=== PATIENT | male | born 1950 | race Caucasian/White ===

== ENCOUNTER 2019-06-03 11:08 | Emergency (ER) | payer MEDICARE, MEDICAID ==
--- NOTE | 2019-06-03 11:46 | EDM.PDOC ---
ED HPI GENERAL MEDICAL PROBLEM - General Chief Complaint: Respiratory Problem Stated Complaint: Anxiety with increased shortness of breath Time Seen by Provider: 06/03/19 11:25 Source of Information: Reports: Patient - History of Present Illness INITIAL COMMENTS - FREE TEXT/NARRATIVE: States today, shortly after getting out of the shower, sudden onset of shortness of breath. Denies chest pain at that time, sat down and took his medications including his as needed hydroxyzine. Stated by the time ambulance arrived was feeling better, and by the time arrival here to the [place] emergency department was feeling better yet compared to the initiation of transport. History of COPD as well as anxiety but stated this was something different from any past occurrences. Stated he has not had any anxiety issues since moving to [facility] but had more significance of that when residing in [place]. Denies any recent exposures, no travel, states he is in his typical good health. Was seen this week and is scheduled to go back tomorrow for recheck on his chronic lower extremity discomfort. Onset: Today, Sudden Duration: Minutes: Location: Reports: Head, Chest Severity: Moderate Improves with: Reports: Medication Worsens with: Reports: None Context: Reports: Other Associated Symptoms: Reports: Shortness of Breath. Denies: Confusion, Chest Pain, Cough, cough w sputum, Fever/Chills, Headaches, Loss of Appetite, Malaise , Nausea/Vomiting, Syncope - Related Data Allergies Allergy/AdvReac Type Severity Reaction Status Date / Time No Known Allergies Allergy Verified 06/03/19 11:54 Home Meds: Home Meds Fluticasone/Vilanterol [Breo Ellipta 100-25 MCG Inhalation Kit] 2 puff INH BID 06/03/19 [History] Gabapentin [Neurontin] 600 mg PO BID 06/03/19 [History] Ipratropium [Atrovent HFA] 2 puff INH BID 06/03/19 [History] QUEtiapine Fumarate [Quetiapine Fumarate] 800 mg PO BEDTIME 06/03/19 [History] busPIRone HCl [Buspirone HCl] 15 mg PO BID PRN 06/03/19 [History] hydrOXYzine pamoate [Hydroxyzine Pamoate] 50 mg PO BID PRN 06/03/19 [History] Past Medical History HEENT History: Reports: Impaired Vision Cardiovascular History: Reports: None Respiratory History: Reports: COPD, Sleep Apnea Gastrointestinal History: Reports: None Genitourinary History: Reports: None Musculoskeletal History: Reports: Arthritis (Right leg has been increasing bothersome with clinic visit yesterday started on ibuprofen which is seemingly helping. Previously had been using aspirin with improvement.) Psychiatric History: Reports: Anxiety Endocrine/Metabolic History: Reports: None Hematologic History: Reports: None Immunologic History: Reports: None Oncologic (Cancer) History: Reports: None Dermatologic History: Reports: None - Infectious Disease History Infectious Disease History: Reports: None - Past Surgical History HEENT Surgical History: Reports: None Cardiovascular Surgical History: Reports: None Respiratory Surgical History: Reports: None GI Surgical History: Reports: None Neurological Surgical History: Reports: Other (See Below) (Discectomy) Social & Family History - Family History Family Medical History: Noncontributory - Tobacco Use Smoking Status *Q: Current Every Day Smoker Tobacco Use Within Last Twelve Months: Cigarettes Used Tobacco, but Quit: Yes Month/Year Tobacco Last Used: Quit 9 years ago for 3-4 years cessation and then restarted. Now down to on Smoking Cessation Information Provided To Patient: Patient Refused (Self Quit the past 2 days, exhausted current supply and is not buying more.) - Caffeine Use Caffeine Use: Reports: None - Alcohol Use Alcohol Use History: No Alcohol Use in Last Twelve Months: No - Recreational Drug Use Recreational Drug Use: No ED ROS GENERAL - Review of Systems Review Of Systems: See Below Constitutional: Reports: No Symptoms. Denies: Fever, Chills, Fatigue HEENT: Reports: No Symptoms Respiratory: Reports: Shortness of Breath (Chronic COPD). Denies: Wheezing, Cough Cardiovascular: Reports: No Symptoms. Denies: Chest Pain, Dyspnea on Exertion, Lightheadedness, Orthopnea, Palpitations Endocrine: Reports: No Symptoms GI/Abdominal: Reports: No Symptoms, Constipation (Constipation which is treated with daily stool softener no recent events.) : Reports: No Symptoms Musculoskeletal: Reports: Leg Pain (Chronic right leg discomfort and scheduled to return tomorrow for reevaluation after implementation of anti-inflammatory. Previous use of aspirin with improvement.) Skin: Reports: No Symptoms. Denies: Cyanosis, Pallor Neurological: Reports: No Symptoms Psychiatric: Reports: Anxiety. Denies: Agitation, Depression Hematologic/Lymphatic: Reports: No Symptoms Immunologic: Reports: No Symptoms ED EXAM, GENERAL - Physical Exam Exam: See Below () Free Text/Narrative:: Alert, oriented, 3 in no distress. There is no cyanosis or pallor. HEENT is negative to discharge or deformity. PERRLA no icterus no injection EOM intact. No involvement to the auditory canals and tympanic membranes. [place] moist mucous membranes with no erythema. Dentition is in moderate discord. Neck soft supple no lymphadenopathy, no JVD, I do not appreciate carotid bruit. Thorax is clear no wheezes no crackles mildly diminished in the bases. Cardiac S1-S2 I do not appreciate murmur abdomen is soft bowel sounds are present no tenderness, no rebound tenderness, no megaly appreciated. No edema to lower extremities moves them about with no difficulty. rectal was deferred. In discussion during the examination, Alejo feels this was anxiety related. States when onset of breathing occurred after he had gotten out of the shower, he took his daily medications including his as needed anxiolytic. He stated and 20 minutes time for ambulance to arrive and assess he was feeling much better. He continued to improve in route to the facility with no concerns. States that he is well assured that it is not anything other than anxiety induced in accord with his COPD, denying chest pain, discomfort in any fashion. General Appearance: Alert, WD/WN, No Apparent Distress Ears: Normal External Exam, Normal Canal, Hearing Grossly Normal, Normal TMs EKG INTERPRETATION EKG Date: 06/03/19 Time: 11:41 Rhythm: NSR Rate (Beats/Min): 96 [place]: Normal P-Wave: Present QRS: Normal ST-T: Normal QT: Normal Comparison: NA - No Prior EKG Course - Vital Signs Last Recorded V/S: Last Vital Signs Temp 36.6 C 06/03/19 11:10 Pulse 92 06/03/19 12:45 Resp 18 06/03/19 12:45 BP 139/83 06/03/19 12:45 Pulse Ox 95 06/03/19 12:45 - Orders/Labs/Meds Orders: Active Orders 24 hr Category Date Time Status EKG Documentation Completion [RC] ASDIRECTED Care 06/03/19 11:35 Ordered Labs: Laboratory Tests 06/03/19 06/03/19 06/03/19 Range/Units 11:55 11:55 11:55 WBC 7.12 (5.00-10.00) 10^3/uL RBC 5.02 (4.50-6.00) 10^6/uL Hgb 14.5 (13.0-17.0) g/dL Hct 43.8 (40.0-52.0) % MCV 87.3 (82.0-92.0) fL MCH 28.9 (27.0-31.0) pg MCHC 33.1 (32.0-36.0) g/dL RDW 16.2 H (11.5-14.5) % Plt Count 243 (150-400) 10^3/uL MPV 9.6 (7.4-10.4) fL Immature Gran % (Auto) 0.6 (0.0-5.0) % Neut % (Auto) 70.4 H (50.0-70.0) % Lymph % (Auto) 19.5 L (20.0-40.0) % [place] % (Auto) 7.9 (2.0-8.0) % Eos % (Auto) 1.0 (1.0-3.0) % Baso % (Auto) 0.6 (0.0-1.0) % Immature Gran # (Auto) 0.04 (0.00-0.50) 10^3/uL Neut # (Auto) 5.02 (2.50-7.00) 10^3/uL Lymph # (Auto) 1.39 (1.00-4.00) 10^3/uL [place] # (Auto) 0.56 (0.10-0.80) 10^3/uL Eos # (Auto) 0.07 L (0.10-0.30) 10^3/uL Baso # (Auto) 0.04 (0.00-0.10) 10^3/uL D-Dimer, Quantitative 384 (<400) ng/mL Sodium 138 (136-145) mmol/L Potassium 4.0 (3.3-5.3) mmol/L Chloride 104 (98-115) mmol/L Carbon Dioxide 23.9 (21.0-32.0) mmol/L Anion Gap 14.1 (5-15) mmol/L BUN 16 (6-25) mg/dL Creatinine 0.81 (0.51-1.17) mg/dL Est Cr Clr Drug Dosing 86.07 mL/min Estimated GFR (MDRD) > 60 mL/min Glucose 123 H (75 - 99) mg/dL Calcium 8.9 (8.7-10.3) mg/dL Total Bilirubin 0.2 (0.2-1.0) mg/dL AST 15 (15-37) U/L ALT 22 (12-78) U/L Alkaline Phosphatase 88 (46-116) IU/L Total Protein 7.4 (6.4-8.2) g/dL Albumin 3.65 (3.00-4.80) g/dL - Radiology Interpretation Free Text/Narrative:: Chest x-ray returns with no evidence of hemopneumothorax, no cardiomegaly, no specific infiltrate with moderate stranding, questionable chronic attributed to his COPD. Mild widening appearance of the trachea, definitive hilar presentation within normal limits. Mild fissure findings on lateral view. Over read pending Official reading showing no examination findings of the chest of concern, "negative examination of the chest." - Re-Assessments/Exams Free Text/Narrative Re-Assessment/Exam: 06/03/19 12:31 Continues to feel stable/improved from onset time attempting to contact his daughter for transport home if released. Due to difficult blood draw still awaiting laboratory analysis. Free Text/Narrative Re-Assessment/Exam: 06/03/19 13:27 Feeling his normal baseline self with no concerns at this time, anxious to be discharged home. States he is scheduled for clinic appointment tomorrow with Nelida Rizo. Departure - Departure Time of Disposition: 13:30 Disposition: Home, Self-Care 01 Condition: Good Clinical Impression: Anxiety, COPD (chronic obstructive pulmonary disease), Mild shortness of breath , Hx of sleep apnea - Discharge Information *PRESCRIPTION DRUG MONITORING PROGRAM REVIEWED*: Not Applicable *COPY OF PRESCRIPTION DRUG MONITORING REPORT IN PATIENT RUPERTO: Not Applicable Referrals: Nelida Rizo NP [Primary Care Provider] - Forms: ED Department Discharge Additional Instructions: Continue your medications as previously instructed. Make sure to discuss this situation/recurrence today with your provider when you are there for your recheck. Home and rest today, avoiding any strenuous anxiety causing activity. High consideration for a sleep study should be given secondary of your history and this recent event. Contact your clinic as needed for rescheduling and recheck appointments. Call or return to the emergency department if emergent recurrence of nature that is not controlled with self administration of medications. Sepsis Event Note - Focused Exam Vital Signs: Vital Signs Temp Pulse Resp BP Pulse Ox 06/03/19 12:45 92 18 139/83 95 06/03/19 12:12 93 20 151/84 H 96 06/03/19 11:10 36.6 C 102 H 18 134/62 Date Exam was Performed: 06/03/19 Time Exam was Performed: 13:26 - Problem List & Annotations (1) Anxiety SNOMED Code(s): 51403398 Code(s): F41.9 - ANXIETY DISORDER, UNSPECIFIED Status: Acute Priority: Medium Current Visit: Yes (2) Mild shortness of breath SNOMED Code(s): 290174129 Code(s): R06.02 - SHORTNESS OF BREATH Status: Chronic Priority: High Current Visit: Yes (3) COPD (chronic obstructive pulmonary disease) SNOMED Code(s): 40585779 Code(s): J44.9 - CHRONIC OBSTRUCTIVE PULMONARY DISEASE, UNSPECIFIED Status : Chronic Priority: Medium Current Visit: Yes (4) Hx of sleep apnea SNOMED Code(s): 258879626 Code(s): Z86.69 - PERSONAL HISTORY OF DIS OF THE NERVOUS SYS AND SENSE ORGANS Status: Chronic Current Visit: Yes Annotation/Comment:: Has yet to undergo sleep study, acknowledges denied previous order of this testing modality - Problem List Review Problem List Initiated/Reviewed/Updated: Yes - My Orders Last 24 Hours: My Active Orders 06/03/19 11:35 EKG Documentation Completion [RC] ASDIRECTED - Assessment/Plan Last 24 Hours: My Active Orders 06/03/19 11:35 EKG Documentation Completion [RC] ASDIRECTED Plan: Continue your medications as previously instructed. Make sure to discuss this situation/recurrence today with your provider when you are there for your recheck. Home and rest today, avoiding any strenuous anxiety causing activity. High consideration for a sleep study should be given secondary of your history and this recent event. Contact your clinic as needed for rescheduling and recheck appointments. Call or return to the emergency department if emergent recurrence of nature that is not controlled with self administration of medications.
[2019-06-03 12:31] LABS: ANION GAP 14.1 mmol/L (5-15); CHLORIDE,CL 104 mmol/L (98-115); SODIUM,NA 138 mmol/L (136-145)
--- NOTE | 2019-06-03 12:52 | CR ---
[id number] RAD/RAD Chest PA And Lateral EXAM: RAD Chest PA And Lateral INDICATION: SHORTNESS OF BREATH. COMPARISON: None. DISCUSSION: Cardiomediastinal silhouette is normal in size and contour. No infiltrate, effusion, pneumothorax, or edema. IMPRESSION: Negative examination of the chest. Levi Looney MD 06/03/19 0161 Thank you for allowing us to participate in the care of your patient.
== END 2019-06-03 13:35 | disposition home or self-care (01) ==
LOC: KA.ED 11:08
DX: J44.9 Chronic obstructive pulmonary disease, unspecified (principal); F41.9 Anxiety disorder, unspecified; F17.210 Nicotine dependence, cigarettes, uncomplicated; Z79.899 Other long term (current) drug therapy
CPT/HCPCS: 36415; 71046; 80053; 85025; 85379; 93005; 99284; 99285-25

== ENCOUNTER 2019-09-25 21:50 | Observation (INO) | payer MEDICARE, MEDICAID ==
--- NOTE | 2019-09-25 22:23 | EDM.PDOC ---
ED HPI GENERAL MEDICAL PROBLEM - General Chief Complaint: Cardiovascular Problem Stated Complaint: PANIC ATTACK Time Seen by Provider: 09/25/19 22:10 Source of Information: Reports: Patient History Limitations: Reports: No Limitations - History of Present Illness INITIAL COMMENTS - FREE TEXT/NARRATIVE: 69 YO WM PRESENTS TO ER WITH EPISODE OF SHORTNESS OF BREATH AFTER WAKING FROM A [place] EARLIER TONIGHT. PT REPORTS HE WOKE FEELING PALPITATIONS AND MILD SHORTNESS OF BREATH. PT REPORTS USING HIS ALBUTEROL INHALER WITHOUT RELIEF PROMPTING EMS CALL. PT REPORTS SIMILAR SYMPTOMS IN THE PAST THAT HAVE BEEN RELATED TO PANIC ATTACKS. PT DENIES RECENT ILLNESS, NO FEVER/CHILLS, NO COUGH/CONGESTION, NO COVID EXPOSURES OR CONCERNS PER PATIENT. PT DENIES CHEST PAIN, LOWER EXTREMITY SWELLING, INCREASED WEIGHT GAIN. PT REPORTS HE THINKS HE NEEDS HOME O2- SAO2 94% ON RA AT TIME OF ARRIVAL. Onset: Today Onset Date: 09/25/19 Onset Time: 19:00 Duration: Hour(s): (4) Location: Reports: Other (RESPIRATORY-SHORTNESS OF BREATH) Severity: Moderate Improves with: Reports: Rest Worsens with: Reports: Movement Associated Symptoms: Reports: Malaise, Shortness of Breath, Weakness. Denies: Confusion, Chest Pain, Cough, cough w sputum, Diaphoresis, Fever/Chills, Nausea/Vomiting, Rash, Syncope - Related Data Allergies Allergy/AdvReac Type Severity Reaction Status Date / Time No Known Allergies Allergy Verified 09/25/19 22:07 Home Meds: Home Meds Fluticasone/Vilanterol [Breo Ellipta 100-25 MCG Inhalation Kit] 2 puff INH BID 06/03/19 [History] Gabapentin [Neurontin] 600 mg PO BID 06/03/19 [History] Ipratropium [Atrovent HFA] 2 puff INH BID 06/03/19 [History] QUEtiapine Fumarate [Quetiapine Fumarate] 800 mg PO BEDTIME 06/03/19 [History] busPIRone HCl [Buspirone HCl] 15 mg PO BID PRN 06/03/19 [History] hydrOXYzine pamoate [Hydroxyzine Pamoate] 50 mg PO BID PRN 06/03/19 [History] Past Medical History HEENT History: Reports: Impaired Vision Cardiovascular History: Reports: None Respiratory History: Reports: COPD, Sleep Apnea Gastrointestinal History: Reports: None Genitourinary History: Reports: None Musculoskeletal History: Reports: Arthritis (Right leg has been increasing bothersome with clinic visit yesterday started on ibuprofen which is seemingly helping. Previously had been using aspirin with improvement.) Neurological History: Reports: None Psychiatric History: Reports: Anxiety Endocrine/Metabolic History: Reports: None Hematologic History: Reports: None Immunologic History: Reports: None Oncologic (Cancer) History: Reports: None Dermatologic History: Reports: None - Infectious Disease History Infectious Disease History: Reports: None - Past Surgical History HEENT Surgical History: Reports: None Cardiovascular Surgical History: Reports: None Respiratory Surgical History: Reports: None GI Surgical History: Reports: None Neurological Surgical History: Reports: Other (See Below) (Discectomy) Social & Family History - Family History Family Medical History: Noncontributory - Caffeine Use Caffeine Use: Reports: None Other Caffeine Use: drinks soda 1 bottle 3 times a week ED ROS GENERAL - Review of Systems Review Of Systems: See Below Constitutional: Reports: No Symptoms HEENT: Reports: No Symptoms Respiratory: Reports: Shortness of Breath Cardiovascular: Reports: Dyspnea on Exertion Endocrine: Reports: No Symptoms GI/Abdominal: Reports: No Symptoms : Reports: No Symptoms Musculoskeletal: Reports: No Symptoms Skin: Reports: No Symptoms Neurological: Reports: No Symptoms Psychiatric: Reports: No Symptoms Hematologic/Lymphatic: Reports: No Symptoms Immunologic: Reports: No Symptoms ED EXAM, GENERAL - Physical Exam Exam: See Below Exam Limited By: No Limitations General Appearance: Alert, WD/WN, No Apparent Distress Eye Exam: Bilateral Eye: PERRL Head: Atraumatic, Normocephalic Neck: Normal Inspection, Supple, Non-Tender, Full Range of Motion Respiratory/Chest: No Respiratory Distress, Lungs Clear, No Accessory Muscle Use, Chest Non-Tender, Decreased Breath Sounds Cardiovascular: Normal Peripheral Pulses, Regular Rate, Rhythm, No Edema, No Gallop, No JVD, No Murmur, No Rub GI/Abdominal: Normal Bowel Sounds, Soft, Non-Tender, No Organomegaly, No Distention, No Abnormal Bruit, No Mass Back Exam: Normal Inspection, Full Range of Motion, NT Extremities: Normal Inspection, Normal Range of Motion, Non-Tender, Normal Capillary Refill, No Pedal Edema Neurological: Alert, Oriented, CN II-XII Intact, Normal Cognition, Normal Gait, Normal Reflexes, No Motor/Sensory Deficits Psychiatric: Normal Affect, Normal Mood Skin Exam: Warm, Dry, Intact, Normal Color, No Rash Lymphatic: No Adenopathy EKG INTERPRETATION EKG Date: 09/25/19 Time: 22:10 Rhythm: NSR Rate (Beats/Min): 112 [place]: Normal P-Wave: Present QRS: Normal ST-T: Normal QT: Normal Comparison: NA - No Prior EKG Course - Vital Signs Last Recorded V/S: Last Vital Signs Temp 36.3 C 09/25/19 21:55 Pulse 109 H 09/25/19 22:47 Resp 18 09/25/19 22:47 BP 110/71 09/25/19 22:47 Pulse Ox 95 09/25/19 22:47 - Orders/Labs/Meds Orders: Active Orders 24 hr Category Date Time Status EKG Documentation Completion [RC] ASDIRECTED Care 09/25/19 22:08 Active RT Aerosol Therapy [RC] ASDIRECTED Care 09/25/19 23:31 Ordered Chest 2V [CR] Stat Exams 09/25/19 22:07 Ordered CORONAVIRUS COVID-19 RAPID [MOLEC] Stat Lab 09/25/19 22:55 Received EKG 12 Lead [EK] Stat Ther 09/25/19 22:07 Ordered Labs: Laboratory Tests 09/25/19 09/25/19 09/25/19 Range/Units 22:55 22:55 22:55 WBC 12.12 H (5.00-10.00) 10^3/uL RBC 4.72 (4.50-6.00) 10^6/uL Hgb 13.7 (13.0-17.0) g/dL Hct 40.1 (40.0-52.0) % MCV 85.0 (82.0-92.0) fL MCH 29.0 (27.0-31.0) pg MCHC 34.2 (32.0-36.0) g/dL RDW 14.4 (11.5-14.5) % Plt Count 224 (150-400) 10^3/uL MPV 10.8 H (7.4-10.4) fL Immature Gran % (Auto) 0.2 (0.0-5.0) % Neut % (Auto) 81.3 H (50.0-70.0) % Lymph % (Auto) 10.1 L (20.0-40.0) % [place] % (Auto) 7.1 (2.0-8.0) % Eos % (Auto) 0.8 L (1.0-3.0) % Baso % (Auto) 0.5 (0.0-1.0) % Neut # (Auto) 9.85 H (2.50-7.00) 10^3/uL Lymph # (Auto) 1.23 (1.00-4.00) 10^3/uL [place] # (Auto) 0.86 H (0.10-0.80) 10^3/uL Eos # (Auto) 0.10 (0.10-0.30) 10^3/uL Baso # (Auto) 0.06 (0.00-0.10) 10^3/uL Immature Gran # (Auto) 0.02 (0.00-0.50) 10^3/uL Sodium 141 (136-145) mmol/L Potassium 2.9 L (3.3-5.3) mmol/L Chloride 103 (98-115) mmol/L Carbon Dioxide 24.4 (21.0-32.0) mmol/L Anion Gap 16.5 H (5-15) mmol/L BUN 12 (6-25) mg/dL Creatinine 0.87 (0.51-1.17) mg/dL Est Cr Clr Drug Dosing 81.44 mL/min Estimated GFR (MDRD) > 60 mL/min Glucose 139 H (75 - 99) mg/dL Calcium 8.4 L (8.7-10.3) mg/dL Total Bilirubin 0.5 (0.2-1.0) mg/dL AST 18 (15-37) U/L ALT 17 (12-78) U/L Alkaline Phosphatase 84 (46-116) IU/L Creatine Kinase 79 (26-276) U/L CK-MB (CK-2) 1.80 (0.00-4.30) ng/mL Troponin I 0.07 (0.00-0.070) ng/mL B-Natriuretic Peptide 14 (0-100) pg/mL Total Protein 7.0 (6.4-8.2) g/dL Albumin 3.60 (3.00-4.80) g/dL Meds: Medications Discontinued Medications Generic Name Dose Route Start Last Admin Trade Name Scot PRN Reason Stop Dose Admin Albuterol/Ipratropium 3 ml 09/25/19 23:31 Duoneb 3.0-0.5 Mg/3 Ml NEB 09/25/19 23:32 ONETIME ONE Sodium Chloride 1,000 mls @ 999 mls/hr 09/25/19 22:13 09/25/19 22:40 Normal Saline IV 09/25/19 23:13 999 mls/hr .BOLUS ONE Administration Lorazepam 1 mg 09/25/19 22:13 09/25/19 22:35 Ativan IVPUSH 09/25/19 22:14 1 mg ONETIME ONE Administration Methylprednisolone Sodium Succinate 125 mg 09/25/19 23:31 Solu-Medrol IVPUSH 09/25/19 23:32 ONETIME ONE Potassium Chloride 40 meq 09/25/19 23:37 Klor-Con M20 PO 09/25/19 23:38 ONETIME ONE - Radiology Interpretation Free Text/Narrative:: CXR-NAD Departure - Departure Time of Disposition: 23:53 Disposition: Refer to Observation Condition: Fair Clinical Impression: COPD with exacerbation Anxiety disorder Qualifiers: Anxiety disorder type: generalized anxiety disorder Qualified Code(s): F41.1 - Generalized anxiety disorder Referrals: Tatiana Farrell MD [Physician] - Forms: ED Department Discharge Sepsis Event Note (ED) - Evaluation Sepsis Screening Result: No Definite Risk - Focused Exam Vital Signs: Vital Signs Temp Pulse Resp BP Pulse Ox 09/25/19 22:47 109 H 18 110/71 95 09/25/19 22:15 113 H 15 110/70 95 09/25/19 21:55 36.3 C 120 H 17 140/62 94 L - My Orders Last 24 Hours: My Active Orders 09/25/19 22:07 Chest 2V [CR] Stat EKG 12 Lead [EK] Stat 09/25/19 22:08 EKG Documentation Completion [RC] ASDIRECTED 09/25/19 22:55 CORONAVIRUS COVID-19 RAPID [MOLEC] Stat 09/25/19 23:31 RT Aerosol Therapy [RC] ASDIRECTED - Assessment/Plan Last 24 Hours: My Active Orders 09/25/19 22:07 Chest 2V [CR] Stat EKG 12 Lead [EK] Stat 09/25/19 22:08 EKG Documentation Completion [RC] ASDIRECTED 09/25/19 22:55 CORONAVIRUS COVID-19 RAPID [MOLEC] Stat 09/25/19 23:31 RT Aerosol Therapy [RC] ASDIRECTED Assessment:: 1. COPD EXACERBATION 2. ANXIETY DISORDER Plan: 1. ADMIT TO MEDICINE- DR MARCO ESCOBAR ACCEPTING- COPD EXACERBATION 2. DUONEB Q4 AND PRN 3. SUPPLEMENTAL O2 AND CONSIDER HOME O2 4. SUPPORTIVE CARE
[2019-09-25] MEDS: LORazepam 2 MG/ML SDV IVPUSH ONE (22:35)
[2019-09-25] MEDS: Sodium Chloride 0.9% 1,000 ML IV ONE (22:40)
[2019-09-25 23:26] LABS: ANION GAP 16.5 mmol/L (5-15); CHLORIDE,CL 103 mmol/L (98-115); SODIUM,NA 141 mmol/L (136-145)
[2019-09-25] MEDS: methylPREDNISolone Sodium Succinate 125 MG/2 ML SDV IVPUSH ONE (23:40)
[2019-09-25] MEDS: Albuterol/Ipratropium 3.0-0.5 MG/3 ML Neb Soln NEB ONE (23:50)
[2019-09-25] MEDS ORDERED: Albuterol/Ipratropium 3.0-0.5 MG/3 ML Neb Soln NEB PRN (23:54)
[2019-09-26] MEDS: LORazepam 2 MG/ML SDV IV ONE
[2019-09-26] MEDS: Potassium Chloride 20 MEQ Tab.ER PO ONE
[2019-09-26] MEDS ORDERED: Non-Formulary Medication 1 Each (Hydroxyzine Pamoate [Hydroxyzine Pamoate] 50 MG) PO PRN (00:17)
[2019-09-26] MEDS: Ipratropium 0.02% 0.5 MG/2.5 ML Neb Soln NEB SCH (07:51)
[2019-09-26] MEDS: Sodium Chloride 0.9% 10 ML Syringe FLUSH PRN (07:52)
[2019-09-26] MEDS: Gabapentin 300 MG Cap PO SCH (08:00)
[2019-09-26] MEDS: Acetaminophen 325 MG Tab PO PRN (08:00)
[2019-09-26] MEDS: Formoterol/Mometasone 100-5 MCG 8.8 GM Inhaler IH SCH (08:01)
[2019-09-26 08:05] LABS: ANION GAP 12.8 mmol/L (5-15); CHLORIDE,CL 106 mmol/L (98-115); SODIUM,NA 141 mmol/L (136-145)
[2019-09-26] MEDS ORDERED: IPRATROPIUM INH SCH (09:00)
[2019-09-26] MEDS ORDERED: FLUTICASONE INH SCH (09:00)
[2019-09-26] MEDS ORDERED: VILANTEROL INH SCH (09:00)
[2019-09-26] MEDS: busPIRone 10 MG Tab PO PRN (09:54)
[2019-09-26] MEDS: Escitalopram 10 MG Tab PO SCH (11:21)
--- NOTE | 2019-09-26 11:28 | PCM.HP.2 ---
H&P History of Present Illness - General Date of Service: 09/26/19 Admit Problem/Dx: Admission Diagnosis/Problem Admission Diagnosis/Problem COPD, Moderate chronic obstructive pulmonary disease Source of Information: Patient, Old Records, Provider (Mauri Hwang PA-C (ED provider)), RN - History of Present Illness Initial Comments - Free Text/Narative: Mr. Blanc reports that over the past several weeks, he has had increasing difficulty with breathing. Endorses a long history of "bad lungs" from COPD and anxiety. Hasn't sought medical attention or follow-up care for >4mos. On the evening of 09/25/19, he felt his breathing was tight and he was wheezing so he used a home nebulizer treatment without much improvement, so called EMS for transfer to [facility]. He denies any known inciting factors, but endorses that his anxiety has played a role in his breathing as well. No recent exposures or other cardiopulmonary symptoms. In the ED, he was noted to be overall with a reassuring cardiopulmonary status, but with the following notable findings: - VS: T 36.3, P 120, O2 94% - Labs: WBC 12, K 2.9, troponin 0.07 - EKG: Sinus tachycardia, LAD, no acute ST segment changes - CXR: No acute findings. - COVID negative - Was started on oxygen, though no O2 sat <90% recorded - Medications given: NS 1L, DuoNeb x1, Methylprednisolone 125mg IV x1, lorazepam 1mg IV x1 This morning on rounds, the patient states that he is overall doing better. He feels his breathing problems are a result of a worsening of his COPD and anxiety. States that he has been taking his medications as a prescribed, including maintenance COPD inhalers (Breo, Atrovent) and anxiety medications (escitalopram, quetiapine, and buspirone), except for not having any hydroxyzine. Agreeable to psychology and psychiatry referrals. Desires discharge to home today and is willing to establish care locally and have close follow-up of his chronic conditions, including improvement in in his anxiety management. Denies any thoughts of self harm. Plans to go work on a job in [employer] in 2 weeks due to being bored and wishing for additional money. Chest Pain Score (Numeric/FACES): 7 - Related Data Allergies/Adverse Reactions: Allergies Allergy/AdvReac Type Severity Reaction Status Date / Time No Known Allergies Allergy Verified 09/26/19 07:20 Home Medications: Home Meds Fluticasone/Vilanterol [Breo Ellipta 100-25 MCG Inhalation Kit] 2 puff INH BID 06/03/19 [History] Gabapentin [Neurontin] 600 mg PO BID 06/03/19 [History] Ipratropium [Atrovent HFA] 2 puff INH BID 06/03/19 [History] QUEtiapine Fumarate [Quetiapine Fumarate] 800 mg PO BEDTIME 06/03/19 [History] Albuterol/Ipratropium [DuoNeb 3.0-0.5 MG/3 ML] 3 ml NEB Q4H PRN #30 neb 09/26/19 [Rx] Aspirin 325 mg PO DAILY 09/26/19 [History] Escitalopram [Lexapro] 20 mg PO DAILY 09/26/19 [History] Famotidine 40 mg PO DAILY #30 tablet 09/26/19 [Rx] busPIRone HCl [Buspirone HCl] 15 mg PO BID #0 09/26/19 [Rx] hydrOXYzine pamoate [Hydroxyzine Pamoate] 50 mg PO BID PRN #30 09/26/19 [Rx] predniSONE [Prednisone] 40 mg PO DAILY 4 Days #8 tablet 09/26/19 [Rx] Past Medical History HEENT History: Reports: Impaired Vision Cardiovascular History: Reports: Hypertension Respiratory History: Reports: COPD, Sleep Apnea Gastrointestinal History: Reports: None Genitourinary History: Reports: None Musculoskeletal History: Reports: Arthritis Neurological History: Reports: None Psychiatric History: Reports: Addiction, Anxiety, Depression, Other (See Below) Other Psychiatric History: benzodiapzepine dependence Endocrine/Metabolic History: Reports: Other (See Below) Other Endocrine/Metabolic History: Prediabetes Hematologic History: Reports: None Immunologic History: Reports: None Oncologic (Cancer) History: Reports: None Dermatologic History: Reports: None - Infectious Disease History Infectious Disease History: Reports: None - Past Surgical History HEENT Surgical History: Reports: None Cardiovascular Surgical History: Reports: None Respiratory Surgical History: Reports: None GI Surgical History: Reports: None Neurological Surgical History: Reports: Other (See Below) Social & Family History - Family History Cardiac: Reports: CAD, Hypertension - Tobacco Use Smoking Status *Q: Former Smoker Used Tobacco, but Quit: Yes Month/Year Tobacco Last Used: 02/2019 Second Hand Smoke Exposure: No - Caffeine Use Caffeine Use: Reports: None Other Caffeine Use: drinks soda 1 bottle 3 times a week - Recreational Drug Use Recreational Drug Use: No H&P Review of Systems - Review of Systems: Review Of Systems: See Below General: Reports: Weakness, Fatigue. Denies: Fever, Chills, Decreased Appetite HEENT: Reports: Visual Changes (chronic, states he needs cataract surgery). Denies: Headaches, Sore Throat Pulmonary: Denies: Shortness of Breath, Wheezing, Cough, Sputum, Hemoptysis Cardiovascular: Denies: Chest Pain, Palpitations, Edema, Syncope Gastrointestinal: Reports: Abdominal Pain (occasional epigastric and lower), Constipation (improved with PEG). Denies: Bloody Stool, Decreased Appetite, Nausea, Vomiting Genitourinary: Denies: Dysuria, Frequency, Hematuria Musculoskeletal: Reports: Leg Pain, Muscle Pain, Muscle Stiffness Skin: Denies: Rash, Erythema, Wound Psychiatric: Reports: Depression, Anxiety. Denies: Hallucinations, Suicidal Ideation Neurological: Reports: Weakness, Gait Disturbance. Denies: Headache, Numbness, Syncope Exam - Exam Exam: See Below - Vital Signs Vital Signs: Last Vital Signs Temp 35.9 C L 09/26/19 06:24 Pulse 93 09/26/19 06:24 Resp 20 09/26/19 06:24 BP 120/74 09/26/19 06:24 Pulse Ox 95 09/26/19 07:56 Weight: 99.79 kg - Exam Physical Exam Comments:: GENERAL: Well-appearing elderly white male lying in hospital bed in no acute distress. HEENT: Normocephalic, atraumatic. Conjunctiva clear. Nares patent without discharge. Mucous membranes moist, posterior pharynx unremarkable. NECK: Supple, no masses. CV: Regular rate and rhythm, no murmurs, rubs, or gallops. 2+ radial pulses. PULMONARY: Normal effort, faint end expiratory wheezes in the lower bases bilaterally, no rales or rhonchi. ABDOMEN: Positive bowel sounds, soft, nontender, very mild epigastric and mid lower abdominal pain, no guarding/rigidity/rebound. EXTREMITIES: Very dirty feet bilaterally with mud present. No edema, cyanosis, or clubbing. MUSCULOSKELETAL: Moves all extremities well. NEUROLOGICAL: No obvious deficits. DERMATOLOGIC: No rashes or suspicious lesions in exposed areas. PSYCHIATRIC: Alert, interactive, mildly flattened affect, at least mildly decreased insight and judgment about medical conditions and care, no obvious hallucinations/delusions, denies SI. - Patient Data Lab Results Last 24 hrs: Laboratory Results - last 24 hr 09/25/19 09/25/19 09/25/19 Range/Units 22:55 22:55 22:55 WBC 12.12 H (5.00-10.00) 10^3/uL RBC 4.72 (4.50-6.00) 10^6/uL Hgb 13.7 (13.0-17.0) g/dL Hct 40.1 (40.0-52.0) % MCV 85.0 (82.0-92.0) fL MCH 29.0 (27.0-31.0) pg MCHC 34.2 (32.0-36.0) g/dL RDW 14.4 (11.5-14.5) % Plt Count 224 (150-400) 10^3/uL MPV 10.8 H (7.4-10.4) fL Immature Gran % (Auto) 0.2 (0.0-5.0) % Neut % (Auto) 81.3 H (50.0-70.0) % Lymph % (Auto) 10.1 L (20.0-40.0) % Dillon % (Auto) 7.1 (2.0-8.0) % Eos % (Auto) 0.8 L (1.0-3.0) % Baso % (Auto) 0.5 (0.0-1.0) % Neut # (Auto) 9.85 H (2.50-7.00) 10^3/uL Lymph # (Auto) 1.23 (1.00-4.00) 10^3/uL Dillon # (Auto) 0.86 H (0.10-0.80) 10^3/uL Eos # (Auto) 0.10 (0.10-0.30) 10^3/uL Baso # (Auto) 0.06 (0.00-0.10) 10^3/uL Immature Gran # (Auto) 0.02 (0.00-0.50) 10^3/uL Sodium 141 (136-145) mmol/L Potassium 2.9 L (3.3-5.3) mmol/L Chloride 103 (98-115) mmol/L Carbon Dioxide 24.4 (21.0-32.0) mmol/L Anion Gap 16.5 H (5-15) mmol/L BUN 12 (6-25) mg/dL Creatinine 0.87 (0.51-1.17) mg/dL Est Cr Clr Drug Dosing 81.44 mL/min Estimated GFR (MDRD) > 60 mL/min Glucose 139 H (75 - 99) mg/dL Calcium 8.4 L (8.7-10.3) mg/dL Total Bilirubin 0.5 (0.2-1.0) mg/dL AST 18 (15-37) U/L ALT 17 (12-78) U/L Alkaline Phosphatase 84 (46-116) IU/L Creatine Kinase 79 (26-276) U/L CK-MB (CK-2) 1.80 (0.00-4.30) ng/mL Troponin I 0.07 (0.00-0.070) ng/mL B-Natriuretic Peptide 14 (0-100) pg/mL Total Protein 7.0 (6.4-8.2) g/dL Albumin 3.60 (3.00-4.80) g/dL COVID-19 (DANA) (NEGATIVE) 09/25/19 09/26/19 09/26/19 Range/Units 22:55 07:30 07:30 WBC 6.23 (5.00-10.00) 10^3/uL RBC 4.66 (4.50-6.00) 10^6/uL Hgb 13.6 (13.0-17.0) g/dL Hct 40.2 (40.0-52.0) % MCV 86.3 (82.0-92.0) fL MCH 29.2 (27.0-31.0) pg MCHC 33.8 (32.0-36.0) g/dL RDW 14.8 H (11.5-14.5) % Plt Count 241 (150-400) 10^3/uL MPV 11.2 H (7.4-10.4) fL Immature Gran % (Auto) 0.2 (0.0-5.0) % Neut % (Auto) 89.5 H (50.0-70.0) % Lymph % (Auto) 8.7 L (20.0-40.0) % Dillon % (Auto) 1.1 L (2.0-8.0) % Eos % (Auto) 0.2 L (1.0-3.0) % Baso % (Auto) 0.3 (0.0-1.0) % Neut # (Auto) 5.58 (2.50-7.00) 10^3/uL Lymph # (Auto) 0.54 L (1.00-4.00) 10^3/uL Dillon # (Auto) 0.07 L (0.10-0.80) 10^3/uL Eos # (Auto) 0.01 L (0.10-0.30) 10^3/uL Baso # (Auto) 0.02 (0.00-0.10) 10^3/uL Immature Gran # (Auto) 0.01 (0.00-0.50) 10^3/uL Sodium 141 (136-145) mmol/L Potassium 3.8 (3.3-5.3) mmol/L Chloride 106 (98-115) mmol/L Carbon Dioxide 26.0 (21.0-32.0) mmol/L Anion Gap 12.8 (5-15) mmol/L BUN 10 (6-25) mg/dL Creatinine 0.81 (0.51-1.17) mg/dL Est Cr Clr Drug Dosing 87.47 mL/min Estimated GFR (MDRD) > 60 mL/min Glucose 223 H (75 - 99) mg/dL Calcium 8.9 (8.7-10.3) mg/dL Total Bilirubin (0.2-1.0) mg/dL AST (15-37) U/L ALT (12-78) U/L Alkaline Phosphatase (46-116) IU/L Creatine Kinase (26-276) U/L CK-MB (CK-2) (0.00-4.30) ng/mL Troponin I (0.00-0.070) ng/mL B-Natriuretic Peptide (0-100) pg/mL Total Protein (6.4-8.2) g/dL Albumin (3.00-4.80) g/dL COVID-19 (DANA) Negative (NEGATIVE) Result Diagrams: 09/26/19 07:30 09/26/19 07:30 Sepsis Event Note - Evaluation Sepsis Screening Result: No Definite Risk - Focused Exam Vital Signs: Vital Signs Temp Pulse Resp BP Pulse Ox Pulse Ox 09/26/19 07:56 95 09/26/19 06:24 35.9 C L 93 20 120/74 98 09/26/19 03:59 35.8 C L 97 20 124/76 91 L 09/25/19 23:54 36.2 C 96 20 134/84 99 96 09/25/19 23:50 96 Date Exam was Performed: 09/26/19 Time Exam was Performed: 11:29 Problem List Initiated/Reviewed/Updated: Yes Orders Last 24hrs: Active Orders 24 hr Category Date Time Status Patient Status [ADT] Routine ADT 09/25/19 23:54 Active Oxygen Therapy [RC] PRN Care 09/25/19 23:54 Active RT Aerosol Therapy [RC] ASDIRECTED Care 09/25/19 23:56 Active Ready for Discharge [RC] PER UNIT ROUTINE Care 09/26/19 11:26 Ordered Up With Assistance [RC] ASDIRECTED Care 09/25/19 23:54 Active VTE/DVT Education [RC] PER UNIT ROUTINE Care 09/25/19 23:54 Active Vital Signs [RC] 0300,0700,1100,1500,1900,2300 Care 09/25/19 23:54 Active Heart Healthy Diet [DIET] Diet 09/26/19 Breakfast Active Chest 2V [CR] Stat Exams 09/25/19 22:07 Stop Req Acetaminophen [Tylenol] Med 09/26/19 07:33 Active 650 mg PO Q4H PRN Albuterol/Ipratropium [DuoNeb 3.0-0.5 MG/3 ML] Med 09/25/19 23:54 Active 3 ml NEB Q4H PRN Aspirin [Ecotrin] Med 09/27/19 09:00 Active 325 mg PO DAILY Escitalopram [Lexapro] Med 09/26/19 11:00 Active 20 mg PO DAILY Gabapentin [Neurontin] Med 09/26/19 09:00 Active 600 mg PO BID Ipratropium [Atrovent] Med 09/26/19 07:00 Active 0.5 mg NEB TIDRT Mometasone/Formoterol [Dulera 100-5 MCG] Med 09/26/19 08:00 Active 2 puff IH BIDRT QUEtiapine [SEROqueL] Med 09/26/19 21:00 Active 800 mg PO BEDTIME Sodium Chloride 0.9% [Saline Flush] Med 09/25/19 23:54 Active 10 ml FLUSH Q8HR PRN busPIRone [Buspar] Med 09/26/19 00:17 Active 15 mg PO BID PRN hydrOXYzine pamoate [Hydroxyzine Pamoate] Med 09/26/19 00:17 Pending 50 mg PO BID PRN Saline Lock Insert [OM.PC] Routine Oth 09/25/19 23:54 Ordered Resuscitation Status Routine Resus Stat 09/25/19 23:54 Ordered EKG 12 Lead [EK] Stat Ther 09/25/19 22:07 Stop Req Medication Orders Acetaminophen (Tylenol) 650 mg PO Q4H PRN PRN Reason: Pain/Fever Last Admin: 09/26/19 08:00 Dose: 650 mg Documented by: PAVELL Albuterol/Ipratropium (Duoneb 3.0-0.5 Mg/3 Ml) 3 ml NEB Q4H PRN PRN Reason: Shortness Of Breath/wheezing Aspirin (Ecotrin) 325 mg PO DAILY [facility] Buspirone HCl (Buspar) 15 mg PO BID PRN PRN Reason: Anxiety Last Admin: 09/26/19 09:54 Dose: 15 mg Documented by: KENZIECOL Escitalopram Oxalate (Lexapro) 20 mg PO DAILY [facility] Last Admin: 09/26/19 11:21 Dose: 20 mg Documented by: KENZIECOL Gabapentin (Neurontin) 600 mg PO BID [facility] Last Admin: 09/26/19 08:00 Dose: 600 mg Documented by: KENZIECOL Ipratropium Hebo (Atrovent) 0.5 mg NEB TIDRT [facility] Last Admin: 09/26/19 07:51 Dose: 0.5 mg Documented by: EMELIA Mometasone Furoate/Formoterol Fumar (Dulera 100-5 Mcg) 2 puff IH BIDRT [facility] Last Admin: 09/26/19 08:01 Dose: 2 puff Documented by: EMELIA Non-Formulary Medication (Hydroxyzine Pamoate [Hydroxyzine Pamoate]) 50 mg PO BID PRN PRN Reason: Anxiety Quetiapine Fumarate (Seroquel) 800 mg PO BEDTIME LISA Sodium Chloride (Saline Flush) 10 ml FLUSH Q8HR PRN PRN Reason: keep vein open Last Admin: 09/26/19 07:52 Dose: 10 ml Documented by: EMELIA Assessment/Plan Comment:: HPI summary: Mr. Blanc is a 69yoM with a history notable for COPD and anxiety/depression who reports that over the past several weeks, has had increasing difficulty with breathing. Endorses a long history of "bad lungs" from COPD and anxiety. Hasn't sought medical attention or follow-up care for >4mos. On the evening of 09/25/19, he felt his breathing was tight and he was wheezing so he used a home nebulizer treatment without much improvement, so called EMS for transfer to [facility] ED. He denies any known inciting factors, but endorses that his anxiety has played a role in his breathing as well. No recent exposures or other cardiopulmonary symptoms. ED course: In the ED, he was noted to be overall with a reassuring cardiopulmonary status, but with the following notable findings: - VS: T 36.3, P 120, O2 94% - Labs: WBC 12, K 2.9, troponin 0.07 - EKG: Sinus tachycardia, LAD, no acute ST segment changes - CXR: No acute findings. - COVID negative - Was started on oxygen, though no O2 sat <90% recorded - Medications given: NS 1L, DuoNeb x1, Methylprednisolone 125mg IV x1, lorazepam 1mg IV x1 Hospital course: Patient continued to not have measured hypoxia and oxygen was discontinued. Respiratory status was improved to near baseline. He feels his breathing problems are a result of a worsening of his COPD and anxiety, which fits with his clinical picture. He feels ready for discharge. Hospitalization problems and plan: # Shortness of breath # COPD, with possible exacerbation # Anxiety and depression with panic attacks, with recent poor control # GERD # Leukocytosis # Hypokalemia # Poor hygiene Chronic, stable conditions: # Constipation: Controlled. Continue PEG. # BMI 32 # Chronic lower extremity pain syndrome: Minimal prior records of work-up. R ecommend outpatient evaluation. # Tobacco dependence: Precontemplative stage of change. Patient was admitted to observation status for monitoring of respiratory status. On admission evaluation on the morning of 09/26/19, etiology for shortness of breath is likely multifactorial due to possible COPD exacerbation and uncontrolled anxiety/depression with panic attacks. The patient was not noted to have an oxygen requirement and no concerns arose regarding his cardiopulmonary status or repeat labs on the morning of 09/26/19. His status had improved and patient was deemed to be a good candidate for further outpatient management. He was agreeable to close outpatient follow-up with recommendations as detailed in discharge summary.
--- NOTE | 2019-09-26 11:29 | PCM.DCSUM1 ---
Discharge Summary - Hospital Course Free Text/Narrative:: Date of admission: 09/25/19 Date of discharge: 09/26/19 Admission diagnoses: # Shortness of breath # COPD, with possible exacerbation # Anxiety and depression with panic attacks, with recent poor control # GERD # Leukocytosis # Hypokalemia # Poor hygiene # Constipation # BMI 32 # Chronic lower extremity pain syndrome # Tobacco dependence Discharge diagnoses: # Shortness of breath, improved # COPD, with possible exacerbation # Anxiety and depression with panic attacks, with recent poor control # GERD # Leukocytosis, resolved # Hypokalemia, resolved # Poor hygiene # Constipation, stable # BMI 32 # Chronic lower extremity pain syndrome # Tobacco dependence Consultations: None Procedures: None Hospital course: Mr. Blanc is a 69yoM with a history notable for COPD and anxiety/depression who reports that over the past several weeks, has had increasing difficulty with breathing. Endorses a long history of "bad lungs" from COPD and anxiety. Hasn't sought medical attention or follow-up care for >4mos. On the evening of 09/25/19, he felt his breathing was tight and he was wheezing so he used a home nebulizer treatment without much improvement, so called EMS for transfer to [facility]. He denies any known inciting factors, but endorses that his anxiety has played a role in his breathing as well. No recent exposures or other cardiopulmonary symptoms. In the ED, he was noted to be overall with a reassuring cardiopulmonary status, but with the following notable findings: - VS: T 36.3, P 120, O2 94% - Labs: WBC 12, K 2.9, troponin 0.07 - EKG: Sinus tachycardia, LAD, no acute ST segment changes - CXR: No acute findings. - COVID negative - Was started on oxygen, though no O2 sat <90% recorded - Medications given: NS 1L, DuoNeb x1, Methylprednisolone 125mg IV x1, lorazepam 1mg IV x1 Patient was admitted to observation status for monitoring of respiratory status. On admission evaluation on the morning of 09/26/19, etiology for shortness of breath is likely multifactorial due to possible COPD exacerbation and uncontrolled anxiety/depression with panic attacks. The patient was not noted to have an oxygen requirement and no concerns arose regarding his cardiopulmonary status or repeat labs on the morning of 09/26/19. His status had improved and patient was deemed to be a good candidate for further outpatient management. He was agreeable to close outpatient follow-up with recommendations as detailed in discharge summary. Discharge and follow-up recommendations: - Discharge to home - New medications at discharge: - Prednisone 40mg po daily x 4 days (to complete 5 day burst for COPD exacerbation) - DuoNebs q4h prn shortness of breath/wheezing (for COPD) - Hydroxyzine 50mg po q6h prn anxiety/panic - Famotidine 40mg po daily (for heartburn) - Follow-up to establish care with provider at [facility] in the next 3-5 days - Recommend the following outpatient considerations: - Referral to behavioral health counseling for anxiety/depression/panic - Referral to psychiatry for assistance with anxiety/depression/panic manage ment in the future, if not improving with current regimen and behavioral health counseling - Consider MOCA for cognitive evaluation, with additional consideration for neuropsychology assessment if needed based on results - Consider outpatient sleep study for sleep disturbance and suspicion for JOSEFINA with prior diagnosis per patient Note: This is a same day admission and discharge. - Discharge Data Discharge Date: 09/26/19 Discharge Disposition: Home, Self-Care 01 Condition: Good - Referral to Home Health Primary Care Physician: PCP Not In Area - Patient Instructions Diet: Usual Diet as Tolerated Activity: As Tolerated Showering/Bathing: May Shower - Discharge Plan *PRESCRIPTION DRUG MONITORING PROGRAM REVIEWED*: Yes *COPY OF PRESCRIPTION DRUG MONITORING REPORT IN PATIENT RUPERTO: Yes Prescriptions/Med Rec: Albuterol/Ipratropium [DuoNeb 3.0-0.5 MG/3 ML] 3 ml NEB Q4H PRN #30 neb PRN Reason: Shortness Of Breath/wheezing Famotidine 40 mg PO DAILY #30 tablet hydrOXYzine pamoate [Hydroxyzine Pamoate] 50 mg PO BID PRN #30 PRN Reason: Anxiety predniSONE [Prednisone] 40 mg PO DAILY 4 Days #8 tablet Home Medications: Home Meds Fluticasone/Vilanterol [Breo Ellipta 100-25 MCG Inhalation Kit] 2 puff INH BID 06/03/19 [History] Gabapentin [Neurontin] 600 mg PO BID 06/03/19 [History] Ipratropium [Atrovent HFA] 2 puff INH BID 06/03/19 [History] QUEtiapine Fumarate [Quetiapine Fumarate] 800 mg PO BEDTIME 06/03/19 [History] Albuterol/Ipratropium [DuoNeb 3.0-0.5 MG/3 ML] 3 ml NEB Q4H PRN #30 neb 09/26/19 [Rx] Aspirin 325 mg PO DAILY 09/26/19 [History] Escitalopram [Lexapro] 20 mg PO DAILY 09/26/19 [History] Famotidine 40 mg PO DAILY #30 tablet 09/26/19 [Rx] busPIRone HCl [Buspirone HCl] 15 mg PO BID #0 09/26/19 [Rx] hydrOXYzine pamoate [Hydroxyzine Pamoate] 50 mg PO BID PRN #30 09/26/19 [Rx] predniSONE [Prednisone] 40 mg PO DAILY 4 Days #8 tablet 09/26/19 [Rx] Oxygen Therapy Mode: Room Air Referrals: Nelida Rizo PNEUMATIC DEICER INSPECTOR [Nurse Practitioner] - - Discharge Summary/Plan Comment DC Time >30 min.: Yes - Patient Data Vitals - Most Recent: Last Vital Signs Temp 35.9 C L 09/26/19 06:24 Pulse 93 09/26/19 06:24 Resp 20 09/26/19 06:24 BP 120/74 09/26/19 06:24 Pulse Ox 95 09/26/19 07:56 Weight - Most Recent: 99.79 kg I&O - Last 24 hours: Intake & Output 09/25/19 09/26/19 09/26/19 22:59 06:59 14:59 Intake Total 120 Balance 120 Lab Results - Last 24 hrs: Laboratory Results - last 24 hr 09/25/19 09/25/19 09/25/19 Range/Units 22:55 22:55 22:55 WBC 12.12 H (5.00-10.00) 10^3/uL RBC 4.72 (4.50-6.00) 10^6/uL Hgb 13.7 (13.0-17.0) g/dL Hct 40.1 (40.0-52.0) % MCV 85.0 (82.0-92.0) fL MCH 29.0 (27.0-31.0) pg MCHC 34.2 (32.0-36.0) g/dL RDW 14.4 (11.5-14.5) % Plt Count 224 (150-400) 10^3/uL MPV 10.8 H (7.4-10.4) fL Immature Gran % (Auto) 0.2 (0.0-5.0) % Neut % (Auto) 81.3 H (50.0-70.0) % Lymph % (Auto) 10.1 L (20.0-40.0) % [place] % (Auto) 7.1 (2.0-8.0) % Eos % (Auto) 0.8 L (1.0-3.0) % Baso % (Auto) 0.5 (0.0-1.0) % Neut # (Auto) 9.85 H (2.50-7.00) 10^3/uL Lymph # (Auto) 1.23 (1.00-4.00) 10^3/uL [place] # (Auto) 0.86 H (0.10-0.80) 10^3/uL Eos # (Auto) 0.10 (0.10-0.30) 10^3/uL Baso # (Auto) 0.06 (0.00-0.10) 10^3/uL Immature Gran # (Auto) 0.02 (0.00-0.50) 10^3/uL Sodium 141 (136-145) mmol/L Potassium 2.9 L (3.3-5.3) mmol/L Chloride 103 (98-115) mmol/L Carbon Dioxide 24.4 (21.0-32.0) mmol/L Anion Gap 16.5 H (5-15) mmol/L BUN 12 (6-25) mg/dL Creatinine 0.87 (0.51-1.17) mg/dL Est Cr Clr Drug Dosing 81.44 mL/min Estimated GFR (MDRD) > 60 mL/min Glucose 139 H (75 - 99) mg/dL Calcium 8.4 L (8.7-10.3) mg/dL Total Bilirubin 0.5 (0.2-1.0) mg/dL AST 18 (15-37) U/L ALT 17 (12-78) U/L Alkaline Phosphatase 84 (46-116) IU/L Creatine Kinase 79 (26-276) U/L CK-MB (CK-2) 1.80 (0.00-4.30) ng/mL Troponin I 0.07 (0.00-0.070) ng/mL B-Natriuretic Peptide 14 (0-100) pg/mL Total Protein 7.0 (6.4-8.2) g/dL Albumin 3.60 (3.00-4.80) g/dL COVID-19 (DANA) (NEGATIVE) 09/25/19 09/26/19 09/26/19 Range/Units 22:55 07:30 07:30 WBC 6.23 (5.00-10.00) 10^3/uL RBC 4.66 (4.50-6.00) 10^6/uL Hgb 13.6 (13.0-17.0) g/dL Hct 40.2 (40.0-52.0) % MCV 86.3 (82.0-92.0) fL MCH 29.2 (27.0-31.0) pg MCHC 33.8 (32.0-36.0) g/dL RDW 14.8 H (11.5-14.5) % Plt Count 241 (150-400) 10^3/uL MPV 11.2 H (7.4-10.4) fL Immature Gran % (Auto) 0.2 (0.0-5.0) % Neut % (Auto) 89.5 H (50.0-70.0) % Lymph % (Auto) 8.7 L (20.0-40.0) % [place] % (Auto) 1.1 L (2.0-8.0) % Eos % (Auto) 0.2 L (1.0-3.0) % Baso % (Auto) 0.3 (0.0-1.0) % Neut # (Auto) 5.58 (2.50-7.00) 10^3/uL Lymph # (Auto) 0.54 L (1.00-4.00) 10^3/uL [place] # (Auto) 0.07 L (0.10-0.80) 10^3/uL Eos # (Auto) 0.01 L (0.10-0.30) 10^3/uL Baso # (Auto) 0.02 (0.00-0.10) 10^3/uL Immature Gran # (Auto) 0.01 (0.00-0.50) 10^3/uL Sodium 141 (136-145) mmol/L Potassium 3.8 (3.3-5.3) mmol/L Chloride 106 (98-115) mmol/L Carbon Dioxide 26.0 (21.0-32.0) mmol/L Anion Gap 12.8 (5-15) mmol/L BUN 10 (6-25) mg/dL Creatinine 0.81 (0.51-1.17) mg/dL Est Cr Clr Drug Dosing 87.47 mL/min Estimated GFR (MDRD) > 60 mL/min Glucose 223 H (75 - 99) mg/dL Calcium 8.9 (8.7-10.3) mg/dL Total Bilirubin (0.2-1.0) mg/dL AST (15-37) U/L ALT (12-78) U/L Alkaline Phosphatase (46-116) IU/L Creatine Kinase (26-276) U/L CK-MB (CK-2) (0.00-4.30) ng/mL Troponin I (0.00-0.070) ng/mL B-Natriuretic Peptide (0-100) pg/mL Total Protein (6.4-8.2) g/dL Albumin (3.00-4.80) g/dL COVID-19 (DANA) Negative (NEGATIVE) Med Orders - Current: Current Medications Acetaminophen (Tylenol) 650 mg PO Q4H PRN PRN Reason: Pain/Fever Last Admin: 09/26/19 08:00 Dose: 650 mg Documented by: Albuterol/Ipratropium (Duoneb 3.0-0.5 Mg/3 Ml) 3 ml NEB Q4H PRN PRN Reason: Shortness Of Breath/wheezing Aspirin (Ecotrin) 325 mg PO DAILY [facility] Buspirone HCl (Buspar) 15 mg PO BID PRN PRN Reason: Anxiety Last Admin: 09/26/19 09:54 Dose: 15 mg Documented by: Escitalopram Oxalate (Lexapro) 20 mg PO DAILY [facility] Last Admin: 09/26/19 11:21 Dose: 20 mg Documented by: Gabapentin (Neurontin) 600 mg PO BID [facility] Last Admin: 09/26/19 08:00 Dose: 600 mg Documented by: Ipratropium Tionesta (Atrovent) 0.5 mg NEB TIDRT [facility] Last Admin: 09/26/19 07:51 Dose: 0.5 mg Documented by: Mometasone Furoate/Formoterol Fumar (Dulera 100-5 Mcg) 2 puff IH BIDRT [facility] Last Admin: 09/26/19 08:01 Dose: 2 puff Documented by: Non-Formulary Medication (Hydroxyzine Pamoate [Hydroxyzine Pamoate]) 50 mg PO BID PRN PRN Reason: Anxiety Quetiapine Fumarate (Seroquel) 800 mg PO BEDTIME [facility] Sodium Chloride (Saline Flush) 10 ml FLUSH Q8HR PRN PRN Reason: keep vein open Last Admin: 09/26/19 07:52 Dose: 10 ml Documented by: Discontinued Medications Albuterol/Ipratropium (Duoneb 3.0-0.5 Mg/3 Ml) 3 ml NEB ONETIME ONE Stop: 09/25/19 23:32 Last Admin: 09/25/19 23:50 Dose: 3 ml Documented by: Sodium Chloride (Normal Saline) 1,000 mls @ 999 mls/hr IV .BOLUS ONE Stop: 09/25/19 23:13 Last Admin: 09/25/19 22:40 Dose: 999 mls/hr Documented by: Lorazepam (Ativan) 1 mg IVPUSH ONETIME ONE Stop: 09/25/19 22:14 Last Admin: 09/25/19 22:35 Dose: 1 mg Documented by: Lorazepam (Ativan) 1 mg IV ONETIME ONE Stop: 09/25/19 23:55 Last Admin: 09/26/19 00:00 Dose: 1 mg Documented by: Methylprednisolone Sodium Succinate (Solu-Medrol) 125 mg IVPUSH ONETIME ONE Stop: 09/25/19 23:32 Last Admin: 09/25/19 23:40 Dose: 125 mg Documented by: Potassium Chloride (Klor-Con M20) 40 meq PO ONETIME ONE Stop: 09/25/19 23:38 Last Admin: 09/26/19 00:00 Dose: 40 meq Documented by:
--- NOTE | 2019-09-26 13:49 | CR ---
[id number] RAD/RAD Chest PA And Lateral EXAM: RAD Chest PA And Lateral INDICATION: TACHYCARDIA, SOB COMPARISON: June 03, 2019. DISCUSSION: Cardiomediastinal silhouette is normal in size and contour. No infiltrate, effusion, pneumothorax, or edema. IMPRESSION: Negative examination of the chest. Levi Looney MD 09/26/19 [id number] Thank you for allowing us to participate in the care of your patient.
[2019-09-26] MEDS ORDERED: QUEtiapine 100 MG Tab PO SCH (21:00)
[2019-09-27] MEDS ORDERED: Aspirin 325 MG Tab.EC PO SCH (09:00)
== END 2019-09-26 13:00 | disposition home or self-care (01) ==
LOC: KA.ED 21:50 → KA.MS 23:53 → UNDOADMOB 09-26 00:36 → UNDODISOB 09-26 13:00
PROVIDERS: ADMIT Family Medicine; ATTEND Family Medicine
DX: J44.9 Chronic obstructive pulmonary disease, unspecified (principal); F32.9 Major depressive disorder, single episode, unspecified; F41.0 Panic disorder [episodic paroxysmal anxiety]; K21.9 Gastro-esophageal reflux disease without esophagitis; D72.829 Elevated white blood cell count, unspecified; E87.6 Hypokalemia; K59.00 Constipation, unspecified; G89.4 Chronic pain syndrome; G47.30 Sleep apnea, unspecified; F41.1 Generalized anxiety disorder; Z79.51 Long term (current) use of inhaled steroids; Z87.891 Personal history of nicotine dependence; Z20.828 Contact with and (suspected) exposure to other viral communicable diseases; Z79.82 Long term (current) use of aspirin; Z79.899 Other long term (current) drug therapy
CPT/HCPCS: 36415; 71046; 80048; 80053; 82550; 82553; 83880; 84484; 85025; 93005; 94640; 96361; 96374; 96375; 96376; 99284; 99285-25; A9270-GY; G0378; J2060; J2930; J7030; J7620-GY; U0002

== ENCOUNTER 2019-09-30 10:54 | Emergency (ER) | payer MEDICARE, MEDICAID ==
[2019-09-30 11:45] VITALS: BP 104/51; PULSE 101
--- NOTE | 2019-09-30 11:46 | EDM.PDOC ---
ED HPI GENERAL MEDICAL PROBLEM - General Stated Complaint: short of breath, panic attack Time Seen by Provider: 09/30/19 11:06 Source of Information: Reports: Patient, EMS History Limitations: Reports: No Limitations - History of Present Illness INITIAL COMMENTS - FREE TEXT/NARRATIVE: Patient presents via EMS with complaint of shortness of breath that precipitated a panic attack. He has COPD and was in ER here 5 days ago, hospitalized overnight and discharged the next day with similar symptoms. He was given prednisone bid and he says when he finished that the panic attack started. Patient doesn't use oxygen at home but thinks he should. EMS tells me that his sats were 97% on RA when they arrived. Patient says he feels okay now, for about the last hour. He use DuoNeb, inhaler and buspirone at home. - Related Data Allergies Allergy/AdvReac Type Severity Reaction Status Date / Time No Known Allergies Allergy Verified 09/30/19 11:24 Home Meds: Home Meds Fluticasone/Vilanterol [Breo Ellipta 100-25 MCG Inhalation Kit] 2 puff INH BID 06/03/19 [History] Gabapentin [Neurontin] 600 mg PO BID 06/03/19 [History] Ipratropium [Atrovent HFA] 2 puff INH BID 06/03/19 [History] QUEtiapine Fumarate [Quetiapine Fumarate] 800 mg PO BEDTIME 06/03/19 [History] Albuterol/Ipratropium [DuoNeb 3.0-0.5 MG/3 ML] 3 ml NEB Q4H PRN #30 neb 09/26/19 [Rx] Aspirin 325 mg PO DAILY 09/26/19 [History] Escitalopram [Lexapro] 20 mg PO DAILY 09/26/19 [History] Famotidine 40 mg PO DAILY #30 tablet 09/26/19 [Rx] busPIRone HCl [Buspirone HCl] 15 mg PO BID #0 09/26/19 [Rx] hydrOXYzine pamoate [Hydroxyzine Pamoate] 50 mg PO BID PRN #30 09/26/19 [Rx] predniSONE [Prednisone] 40 mg PO DAILY 4 Days #8 tablet 09/26/19 [Rx] Past Medical History HEENT History: Reports: Impaired Vision Cardiovascular History: Reports: Hypertension Respiratory History: Reports: COPD, Sleep Apnea Gastrointestinal History: Reports: None Genitourinary History: Reports: None Musculoskeletal History: Reports: Arthritis Neurological History: Reports: None Psychiatric History: Reports: Addiction, Anxiety, Depression, Other (See Below) Other Psychiatric History: benzodiapzepine dependence Endocrine/Metabolic History: Reports: Other (See Below) Other Endocrine/Metabolic History: Prediabetes Hematologic History: Reports: None Immunologic History: Reports: None Oncologic (Cancer) History: Reports: None Dermatologic History: Reports: None - Infectious Disease History Infectious Disease History: Reports: None - Past Surgical History HEENT Surgical History: Reports: None Cardiovascular Surgical History: Reports: None Respiratory Surgical History: Reports: None GI Surgical History: Reports: None Neurological Surgical History: Reports: Other (See Below) Social & Family History - Family History Family Medical History: Noncontributory Cardiac: Reports: CAD, Hypertension - Tobacco Use Smoking Status *Q: Former Smoker Used Tobacco, but Quit: Yes Month/Year Tobacco Last Used: 09/2018 - Caffeine Use Caffeine Use: Reports: Soda Other Caffeine Use: drinks soda 1 bottle 3 times a week - Recreational Drug Use Recreational Drug Use: No ED ROS GENERAL - Review of Systems Review Of Systems: See Below Constitutional: Reports: Decreased Appetite. Denies: Fever, Chills, Weakness HEENT: Denies: Ear Pain, Throat Pain, Vision Change Respiratory: Reports: Shortness of Breath Cardiovascular: Denies: Chest Pain, Syncope GI/Abdominal: Denies: Abdominal Pain, Diarrhea, Vomiting : Denies: Dysuria, Flank Pain Musculoskeletal: Denies: Neck Pain, Shoulder Pain, Arm Pain, Back Pain Skin: Denies: Cyanosis, Jaundice, Mottled, Pallor, Diaphoresis Neurological: Denies: Confusion, Dizziness, Headache, Seizure, Syncope, Trouble Speaking, Difficulty Walking Psychiatric: Denies: Agitation, Anxiety, Confusion ED EXAM, GENERAL - Physical Exam Exam: See Below Exam Limited By: No Limitations General Appearance: Alert, WD/WN, No Apparent Distress Eye Exam: Bilateral Eye: EOMI, Normal Inspection, PERRL Ears: Normal External Exam, Hearing Grossly Normal Nose: Normal Inspection, No Blood Throat/Mouth: Normal Inspection, Normal Lips, Normal Voice, No Airway Compromise Head: Atraumatic, Normocephalic Neck: Normal Inspection, Full Range of Motion Respiratory/Chest: No Respiratory Distress, Lungs Clear, No Accessory Muscle Use, Decreased Breath Sounds (throughout). No: Crackles, Rales, Rhonchi, Wheezing, Stridor Cardiovascular: Regular Rate, Rhythm, No Murmur GI/Abdominal: Normal Bowel Sounds, Soft, Non-Tender, No Organomegaly, No Distention Back Exam: Normal Inspection, Full Range of Motion. No: CVA Tenderness (L), CVA Tenderness (R) Extremities: Normal Inspection, Normal Range of Motion Neurological: Alert, Oriented, Normal Cognition, No Motor/Sensory Deficits Psychiatric: Normal Affect, Normal Mood Skin Exam: Warm, Dry, Intact, Normal Color, No Rash Course - Vital Signs Last Recorded V/S: Last Vital Signs Temp 98.7 F 09/30/19 11:08 Pulse 114 H 09/30/19 11:08 Resp 19 09/30/19 11:08 BP 104/57 L 09/30/19 11:08 Pulse Ox 97 09/30/19 11:08 - Re-Assessments/Exams Free Text/Narrative Re-Assessment/Exam: 09/30/19 12:53 Erika Carroll RT assessed patient and did some checking about qualifications for home oxygen. Patient does not qualify at this time; she also tells me that a determination for home oxygen use cannot be made during an ER visit; but that patients need to be in "normal health". She suggests he see his PCP in next 1-2 days for further determination and treatment. Patient was 98% on oxygen. We stopped oxygen and sats ran between 89-94% on RA at rest. 09/30/19 13:03 I discussed findings and options with patient. He would really like another short course of prednisone since it helped so much. We discussed that his PCP may decide to use prednisone as part of chronic management but that if he is trying to qualify for home oxygen he may need to be off it for a couple days. He understands and will try to see his PCP early next week. Will do prednisone for another 4 days. Pt discharged to home in stable condition. Departure - Departure Time of Disposition: 13:09 Disposition: Home, Self-Care 01 Condition: Good Clinical Impression: Dyspnea Qualifiers: Dyspnea type: shortness of breath Qualified Code(s): R06.02 - Shortness of breath; R06.00 - Dyspnea, unspecified; R06.01 - Orthopnea COPD (chronic obstructive pulmonary disease) Qualifiers: COPD type: COPD with acute exacerbation Qualified Code(s): J44.1 - Chronic obstructive pulmonary disease with (acute) exacerbation - Discharge Information Referrals: Lizette Vazquez MD [Physician] - Additional Instructions: Continue your nebulizer and inhaler as directed. Take the prednisone as directed and follow up with your PCP early next week to determine chronic prednisone versus possible home oxygen. Sepsis Event Note (ED) - Evaluation Sepsis Screening Result: No Definite Risk - Focused Exam Vital Signs: Vital Signs Temp Pulse Resp BP Pulse Ox 09/30/19 11:08 98.7 F 114 H 19 104/57 L 97
[2019-09-30] MEDS ORDERED: Albuterol/Ipratropium 3.0-0.5 MG/3 ML Neb Soln NEB ONE (13:16)
[2019-09-30] MEDS ORDERED: predniSONE 20 MG Tab PO ONE (13:19)
== END 2019-09-30 15:00 | disposition home or self-care (01) ==
LOC: KA.ED 10:54
DX: J44.1 Chronic obstructive pulmonary disease with (acute) exacerbation (principal); I10 Essential (primary) hypertension; M19.90 Unspecified osteoarthritis, unspecified site; F41.9 Anxiety disorder, unspecified; F32.9 Major depressive disorder, single episode, unspecified; Z79.899 Other long term (current) drug therapy; Z79.82 Long term (current) use of aspirin; Z87.891 Personal history of nicotine dependence
CPT/HCPCS: 94640; 99284; 99285-25; J7512; J7620-GY

== ENCOUNTER 2019-10-08 16:49 | Emergency (ER) | payer MEDICARE, MEDICAID ==
[2019-10-08] MEDS ORDERED: Sodium Chloride 0.9% 10 ML Syringe FLUSH PRN (17:08)
[2019-10-08] MEDS: Albuterol/Ipratropium 3.0-0.5 MG/3 ML Neb Soln NEB ONE (17:34)
--- NOTE | 2019-10-08 17:36 | EDM.PDOC ---
ED HPI GENERAL MEDICAL PROBLEM - General Chief Complaint: Respiratory Problem Stated Complaint: DYSPNEA Time Seen by Provider: 10/08/19 17:07 Source of Information: Reports: Patient History Limitations: Reports: No Limitations - History of Present Illness INITIAL COMMENTS - FREE TEXT/NARRATIVE: Patient is a 69-year-old gentleman who presents to the emergency department this afternoon via EMS for complaint of shortness of breath. Patient states approximately 2 p.m. this afternoon when he woke up from his nap, he became short of breath. Patient tried albuterol updraft at home. However, did not feel relief. Patient then contacted EMS. Patient has had similar episodes in the past. Patient was seen here on September 24, and September 29 for same symptoms. Patient has a history of COPD. Patient denies fever, chest pain, cough, congestion, lower extremity edema, history of CHF, nausea, vomiting, diarrhea, headache, or suspected covid exposure Onset: Today, Sudden Duration: Hour(s): Quality: Reports: Other (Denies chest pain) Severity: Mild Improves with: Reports: None Worsens with: Reports: Breathing Context: Reports: Other (While walking to the bathroom) Associated Symptoms: Reports: No Other Symptoms - Related Data Allergies Allergy/AdvReac Type Severity Reaction Status Date / Time No Known Allergies Allergy Verified 10/08/19 16:55 Home Meds: Home Meds Fluticasone/Vilanterol [Breo Ellipta 100-25 MCG Inhalation Kit] 2 puff INH BID 06/03/19 [History] Gabapentin [Neurontin] 600 mg PO BID 06/03/19 [History] Ipratropium [Atrovent HFA] 2 puff INH BID 06/03/19 [History] QUEtiapine Fumarate [Quetiapine Fumarate] 800 mg PO BEDTIME 06/03/19 [History] Albuterol/Ipratropium [DuoNeb 3.0-0.5 MG/3 ML] 3 ml NEB Q4H PRN #30 neb 09/26/19 [Rx] Aspirin 325 mg PO DAILY 09/26/19 [History] busPIRone HCl [Buspirone HCl] 15 mg PO BID #0 09/26/19 [Rx] hydrOXYzine pamoate [Hydroxyzine Pamoate] 50 mg PO BID PRN #30 09/26/19 [Rx] methylPREDNISolone [Medrol Dose Pack] 84 mg PO DAILY #1 dospk 10/08/19 [Rx] Past Medical History HEENT History: Reports: Impaired Vision Cardiovascular History: Reports: Hypertension Respiratory History: Reports: COPD, Sleep Apnea Gastrointestinal History: Reports: None Genitourinary History: Reports: None Musculoskeletal History: Reports: Arthritis Neurological History: Reports: None Psychiatric History: Reports: Addiction, Anxiety, Depression, Other (See Below) Other Psychiatric History: benzodiapzepine dependence Endocrine/Metabolic History: Reports: Other (See Below) Other Endocrine/Metabolic History: Prediabetes Hematologic History: Reports: None Immunologic History: Reports: None Oncologic (Cancer) History: Reports: None Dermatologic History: Reports: None - Infectious Disease History Infectious Disease History: Reports: None - Past Surgical History HEENT Surgical History: Reports: None Cardiovascular Surgical History: Reports: None Respiratory Surgical History: Reports: None GI Surgical History: Reports: None Neurological Surgical History: Reports: Other (See Below) Social & Family History - Family History Family Medical History: Noncontributory Cardiac: Reports: CAD, Hypertension - Caffeine Use Caffeine Use: Reports: Soda Other Caffeine Use: drinks soda 1 bottle 3 times a week ED ROS GENERAL - Review of Systems Review Of Systems: Comprehensive ROS is negative, except as noted in HPI. Constitutional: Reports: No Symptoms. Denies: Fever HEENT: Reports: No Symptoms Respiratory: Reports: Shortness of Breath Cardiovascular: Reports: No Symptoms. Denies: Chest Pain Endocrine: Reports: No Symptoms GI/Abdominal: Reports: No Symptoms : Reports: No Symptoms Musculoskeletal: Reports: No Symptoms Skin: Reports: No Symptoms Neurological: Reports: No Symptoms Psychiatric: Reports: No Symptoms Hematologic/Lymphatic: Reports: No Symptoms Immunologic: Reports: No Symptoms ED EXAM, GENERAL - Physical Exam Exam: See Below Exam Limited By: No Limitations General Appearance: Alert, WD/WN, No Apparent Distress Nose: Normal Inspection, Normal Mucosa, No Blood Throat/Mouth: Normal Inspection, Normal Oropharynx, No Airway Compromise Head: Atraumatic, Normocephalic Neck: Normal Inspection Respiratory/Chest: Decreased Breath Sounds (Throughout), Wheezing (End expiratory) Cardiovascular: No Murmur, Tachycardia GI/Abdominal: Normal Bowel Sounds, Soft, Non-Tender Back Exam: Normal Inspection. No: CVA Tenderness (L), CVA Tenderness (R) Extremities: Normal Inspection, No Pedal Edema Neurological: Alert, Oriented, Normal Cognition Psychiatric: Normal Affect, Normal Mood Skin Exam: Warm, Dry, Intact, Normal Color, No Rash Lymphatic: No Adenopathy EKG INTERPRETATION EKG Date: 10/08/19 Time: 17:20 Rhythm: Other (Sinus tachycardia with occasional PACs) Rate (Beats/Min): 123 [place]: LAD-Left [place] Deviation P-Wave: Present QRS: Normal ST-T: Normal QT: Normal Comparison: No Change (From 09/26/2019) Course - Vital Signs Last Recorded V/S: Last Vital Signs Temp 96.8 F L 10/08/19 16:50 Pulse 99 10/08/19 17:34 Resp BP 115/54 L 10/08/19 16:50 Pulse Ox 99 10/08/19 17:34 - Orders/Labs/Meds Orders: Active Orders 24 hr Category Date Time Status EKG Documentation Completion [RC] ASDIRECTED Care 10/08/19 17:09 Ordered Peripheral IV Care [RC] . DIRECTED Care 10/08/19 17:09 Ordered RT Aerosol Therapy [RC] ASDIRECTED Care 10/08/19 17:09 Ordered Sodium Chloride 0.9% [Saline Flush] Med 10/08/19 17:08 Ordered 10 ml FLUSH Q8HR PRN Peripheral IV Insertion Adult [OM.PC] Routine Oth 10/08/19 17:08 Ordered EKG 12 Lead [EK] Stat Ther 10/08/19 17:08 Ordered Medication Orders Sodium Chloride (Saline Flush) 10 ml FLUSH Q8HR PRN PRN Reason: keep vein open Labs: Laboratory Tests 10/08/19 10/08/19 Range/Units 17:30 17:30 WBC 14.96 H (5.00-10.00) 10^3/uL RBC 5.03 (4.50-6.00) 10^6/uL Hgb 14.4 (13.0-17.0) g/dL Hct 43.9 (40.0-52.0) % MCV 87.3 (82.0-92.0) fL MCH 28.6 (27.0-31.0) pg MCHC 32.8 (32.0-36.0) g/dL RDW 15.4 H (11.5-14.5) % Plt Count 232 (150-400) 10^3/uL MPV 9.8 (7.4-10.4) fL Immature Gran % (Auto) 0.7 (0.0-5.0) % Neut % (Auto) 78.9 H (50.0-70.0) % Lymph % (Auto) 14.8 L (20.0-40.0) % [place] % (Auto) 4.5 (2.0-8.0) % Eos % (Auto) 0.8 L (1.0-3.0) % Baso % (Auto) 0.3 (0.0-1.0) % Neut # (Auto) 11.79 H (2.50-7.00) 10^3/uL Lymph # (Auto) 2.22 (1.00-4.00) 10^3/uL [place] # (Auto) 0.68 (0.10-0.80) 10^3/uL Eos # (Auto) 0.12 (0.10-0.30) 10^3/uL Baso # (Auto) 0.04 (0.00-0.10) 10^3/uL Immature Gran # (Auto) 0.11 (0.00-0.50) 10^3/uL Sodium 140 (136-145) mmol/L Potassium 4.3 (3.3-5.3) mmol/L Chloride 103 (98-115) mmol/L Carbon Dioxide 28.3 (21.0-32.0) mmol/L Anion Gap 13.0 (5-15) mmol/L BUN 24 (6-25) mg/dL Creatinine 1.00 (0.51-1.17) mg/dL Est Cr Clr Drug Dosing 69.72 mL/min Estimated GFR (MDRD) > 60 mL/min Glucose 179 H (75 - 99) mg/dL Calcium 9.0 (8.7-10.3) mg/dL Total Bilirubin 0.4 (0.2-1.0) mg/dL AST 26 (15-37) U/L ALT 58 (12-78) U/L Alkaline Phosphatase 83 (46-116) IU/L Total Protein 7.2 (6.4-8.2) g/dL Albumin 3.48 (3.00-4.80) g/dL Meds: Medications Generic Name Dose Route Start Last Admin Trade Name Freq PRN Reason Stop Dose Admin Sodium Chloride 10 ml 10/08/19 17:08 Saline Flush FLUSH Q8HR PRN keep vein open Discontinued Medications Generic Name Dose Route Start Last Admin Trade Name Scot PRN Reason Stop Dose Admin Albuterol/Ipratropium 3 ml 10/08/19 17:08 10/08/19 17:34 Duoneb 3.0-0.5 Mg/3 Ml NEB 10/08/19 17:09 3 ml ONETIME ONE Administration Methylprednisolone Sodium Succinate 125 mg 10/08/19 17:41 10/08/19 17:53 Solu-Medrol IVPUSH 10/08/19 17:42 125 mg ONETIME ONE Administration - Re-Assessments/Exams Free Text/Narrative Re-Assessment/Exam: 10/08/19 17:39 Patient refused chest x-ray, states this is an anxiety attack and does not need that. 10/08/19 18:15 Patient afebrile, vital signs stable, sats 95% on room air. Bilateral breath sounds with minimal expiratory wheeze. Patient feels much better and is requesting to go home. Patient will follow-up with PCP as scheduled for his appointment on Saturday at 11 a.m, or return to emergency department sooner if symptoms continue. Departure - Departure Time of Disposition: 18:16 Disposition: Home, Self-Care 01 Condition: Good Clinical Impression: COPD (chronic obstructive pulmonary disease) Qualifiers: COPD type: COPD with acute exacerbation Qualified Code(s): J44.1 - Chronic obstructive pulmonary disease with (acute) exacerbation - Discharge Information Prescriptions: methylPREDNISolone [Medrol Dose Pack] 84 mg PO DAILY #1 dospk Instructions: Chronic Obstructive Pulmonary Disease Exacerbation, [id number], COPD and Physical Activity Referrals: Tatiana Farrell MD [Primary Care Provider] - Forms: ED Department Discharge Additional Instructions: Follow-up as scheduled with Dr. Cary cheung on Saturday morning. Continue nebulizer treatments every 4 hours. Take medication as directed. Return to emergency department if symptoms continue or worsen. Sepsis Event Note (ED) - Evaluation Sepsis Screening Result: No Definite Risk - Focused Exam Vital Signs: Vital Signs Temp Pulse BP Pulse Ox Pulse Ox 10/08/19 17:34 99 99 10/08/19 16:50 96.8 F L 119 H 115/54 L 100 - My Orders Last 24 Hours: My Active Orders 10/08/19 17:08 Sodium Chloride 0.9% [Saline Flush] 10 ml FLUSH Q8HR PRN Peripheral IV Insertion Adult [OM.PC] Routine EKG 12 Lead [EK] Stat 10/08/19 17:09 EKG Documentation Completion [RC] ASDIRECTED Peripheral IV Care [RC] . DIRECTED RT Aerosol Therapy [RC] ASDIRECTED - Assessment/Plan Last 24 Hours: My Active Orders 10/08/19 17:08 Sodium Chloride 0.9% [Saline Flush] 10 ml FLUSH Q8HR PRN Peripheral IV Insertion Adult [OM.PC] Routine EKG 12 Lead [EK] Stat 10/08/19 17:09 EKG Documentation Completion [RC] ASDIRECTED Peripheral IV Care [RC] . DIRECTED RT Aerosol Therapy [RC] ASDIRECTED Assessment:: COPD Plan: Follow-up with PCP as scheduled
[2019-10-08] MEDS: methylPREDNISolone Sodium Succinate 125 MG/2 ML SDV IVPUSH ONE (17:53)
[2019-10-08 18:00] LABS: CHLORIDE,CL 103 mmol/L (98-115); SODIUM,NA 140 mmol/L (136-145)
== END 2019-10-08 20:14 | disposition home or self-care (01) ==
LOC: KA.ED 16:49
DX: J44.1 Chronic obstructive pulmonary disease with (acute) exacerbation (principal); I10 Essential (primary) hypertension; F41.9 Anxiety disorder, unspecified; F32.9 Major depressive disorder, single episode, unspecified; Z79.82 Long term (current) use of aspirin; Z79.899 Other long term (current) drug therapy
CPT/HCPCS: 36415; 80053; 85025; 93005; 94640; 96374; 99284; 99285-25; J2930; J7620-GY

== ENCOUNTER 2019-10-12 20:07 | Emergency (ER) | payer MEDICARE, MEDICAID ==
[2019-10-12] MEDS ORDERED: Sodium Chloride 0.9% 10 ML Syringe FLUSH PRN (20:28)
[2019-10-12] MEDS: Albuterol/Ipratropium 3.0-0.5 MG/3 ML Neb Soln NEB ONE (20:30)
[2019-10-12] MEDS: Albuterol/Ipratropium 3.0-0.5 MG/3 ML Neb Soln ONE (20:36)
--- NOTE | 2019-10-12 21:09 | EDM.PDOC ---
ED HPI GENERAL MEDICAL PROBLEM - General Chief Complaint: Respiratory Problem Stated Complaint: PANIC ATTACK Time Seen by Provider: 10/12/19 20:26 Source of Information: Reports: Patient History Limitations: Reports: No Limitations - History of Present Illness INITIAL COMMENTS - FREE TEXT/NARRATIVE: Patient is a 69-year-old gentleman who presents the emergency department this e vening via EMS for complaint of shortness of breath. Patient states his prior to arrival while ambulating to the bathroom he could not catch his breath. Thought he was having a panic attack, so he called EMS. Patient was seen here September 24, September 29, October 07 for same. Patient has COPD with chronic dyspnea. Patient denies chest pain, fever, covid exposure, nausea, vomiting, diarrhea, syncopal episode, abdominal pain, history of CHF, or lower extremity edema. Onset: Today Duration: Chronic, Getting Worse Severity: Moderate Improves with: Reports: None Worsens with: Reports: None Associated Symptoms: Reports: Diaphoresis, Shortness of Breath. Denies: Chest Pain, Cough, Fever/Chills, Nausea/Vomiting - Related Data Allergies Allergy/AdvReac Type Severity Reaction Status Date / Time No Known Allergies Allergy Verified 10/12/19 22:04 Home Meds: Home Meds Fluticasone/Vilanterol [Breo Ellipta 100-25 MCG Inhalation Kit] 2 puff INH BID 06/03/19 [History] Gabapentin [Neurontin] 600 mg PO BID 06/03/19 [History] Ipratropium [Atrovent HFA] 2 puff INH BID 06/03/19 [History] QUEtiapine Fumarate [Quetiapine Fumarate] 800 mg PO BEDTIME 06/03/19 [History] Albuterol/Ipratropium [DuoNeb 3.0-0.5 MG/3 ML] 3 ml NEB Q4H PRN #30 neb 09/26/19 [Rx] Aspirin 325 mg PO DAILY 09/26/19 [History] busPIRone HCl [Buspirone HCl] 15 mg PO BID #0 09/26/19 [Rx] hydrOXYzine pamoate [Hydroxyzine Pamoate] 50 mg PO BID PRN #30 09/26/19 [Rx] methylPREDNISolone [Medrol Dose Pack] 84 mg PO DAILY #1 dospk 10/08/19 [Rx] Past Medical History HEENT History: Reports: Impaired Vision Cardiovascular History: Reports: Hypertension Respiratory History: Reports: COPD, Sleep Apnea Gastrointestinal History: Reports: None Genitourinary History: Reports: None Musculoskeletal History: Reports: Arthritis Neurological History: Reports: None Psychiatric History: Reports: Addiction, Anxiety, Depression, Other (See Below) Other Psychiatric History: benzodiapzepine dependence Endocrine/Metabolic History: Reports: Other (See Below) Other Endocrine/Metabolic History: Prediabetes Hematologic History: Reports: None Immunologic History: Reports: None Oncologic (Cancer) History: Reports: None Dermatologic History: Reports: None - Infectious Disease History Infectious Disease History: Reports: None - Past Surgical History HEENT Surgical History: Reports: None Cardiovascular Surgical History: Reports: None Respiratory Surgical History: Reports: None GI Surgical History: Reports: None Neurological Surgical History: Reports: Other (See Below) Social & Family History - Family History Family Medical History: Noncontributory Cardiac: Reports: CAD, Hypertension - Caffeine Use Caffeine Use: Reports: Soda Other Caffeine Use: drinks soda 1 bottle 3 times a week ED ROS GENERAL - Review of Systems Review Of Systems: Comprehensive ROS is negative, except as noted in HPI. Constitutional: Reports: No Symptoms HEENT: Reports: No Symptoms Respiratory: Reports: Shortness of Breath Cardiovascular: Reports: Dyspnea on Exertion. Denies: Chest Pain Endocrine: Reports: No Symptoms GI/Abdominal: Reports: No Symptoms : Reports: No Symptoms Musculoskeletal: Reports: No Symptoms Skin: Reports: No Symptoms Neurological: Reports: No Symptoms Psychiatric: Reports: No Symptoms Hematologic/Lymphatic: Reports: No Symptoms Immunologic: Reports: No Symptoms ED EXAM, GENERAL - Physical Exam Exam: See Below Exam Limited By: No Limitations General Appearance: Alert, WD/WN, Mild Distress Nose: Normal Inspection, Normal Mucosa, No Blood Throat/Mouth: Normal Inspection, Normal Oropharynx, No Airway Compromise Head: Atraumatic, Normocephalic Neck: Normal Inspection Respiratory/Chest: Decreased Breath Sounds (Throughout), Wheezing (end expiratory) Cardiovascular: Regular Rate, Rhythm, No Murmur GI/Abdominal: Normal Bowel Sounds, Soft, Non-Tender Back Exam: Normal Inspection. No: CVA Tenderness (L), CVA Tenderness (R) Extremities: Normal Inspection, No Pedal Edema Neurological: Alert, Oriented, Normal Cognition Psychiatric: Normal Affect, Normal Mood Skin Exam: Warm, Dry, Intact, Normal Color, No Rash Course - Vital Signs Last Recorded V/S: Last Vital Signs Temp 97.5 F 10/12/19 21:20 Pulse 98 10/12/19 22:00 Resp 18 10/12/19 22:00 BP 126/50 L 10/12/19 21:45 Pulse Ox 92 L 10/12/19 22:00 - Orders/Labs/Meds Orders: Active Orders 24 hr Category Date Time Status Oxygen Therapy Adult [Oxygen Therapy] [RC] ASDIRECTED Care 10/12/19 20:29 Active Peripheral IV Care [RC] . DIRECTED Care 10/12/19 20:29 Active RT Aerosol Therapy [RC] ASDIRECTED Care 10/12/19 20:29 Active Chest 2V [CR] Stat Exams 10/12/19 20:28 Ordered CORONAVIRUS COVID-19 RAPID [MOLEC] Stat Lab 10/12/19 22:09 Ordered LACTIC ACID [CHEM] Stat Lab 10/12/19 22:09 Ordered Sodium Chloride 0.9% [Saline Flush] Med 10/12/19 20:28 Active 10 ml FLUSH Q8HR PRN Peripheral IV Insertion Adult [OM.PC] Routine Oth 10/12/19 20:28 Ordered Medication Orders Sodium Chloride (Saline Flush) 10 ml FLUSH Q8HR PRN PRN Reason: keep vein open Labs: Laboratory Tests 10/12/19 10/12/19 Range/Units 21:30 21:30 WBC 19.78 H (5.00-10.00) 10^3/uL RBC 5.78 (4.50-6.00) 10^6/uL Hgb 16.5 D (13.0-17.0) g/dL Hct 50.1 (40.0-52.0) % MCV 86.7 (82.0-92.0) fL MCH 28.5 (27.0-31.0) pg MCHC 32.9 (32.0-36.0) g/dL RDW 15.1 H (11.5-14.5) % Plt Count 255 (150-400) 10^3/uL MPV 9.5 (7.4-10.4) fL Immature Gran % (Auto) 0.7 (0.0-5.0) % Neut % (Auto) 83.2 H (50.0-70.0) % Lymph % (Auto) 9.0 L (20.0-40.0) % [place] % (Auto) 6.7 (2.0-8.0) % Eos % (Auto) 0.2 L (1.0-3.0) % Baso % (Auto) 0.2 (0.0-1.0) % Neut # (Auto) 16.48 H (2.50-7.00) 10^3/uL Lymph # (Auto) 1.78 (1.00-4.00) 10^3/uL [place] # (Auto) 1.32 H (0.10-0.80) 10^3/uL Eos # (Auto) 0.03 L (0.10-0.30) 10^3/uL Baso # (Auto) 0.04 (0.00-0.10) 10^3/uL Immature Gran # (Auto) 0.13 (0.00-0.50) 10^3/uL Sodium 139 (136-145) mmol/L Potassium 4.1 (3.3-5.3) mmol/L Chloride 102 (98-115) mmol/L Carbon Dioxide 26.8 (21.0-32.0) mmol/L Anion Gap 14.3 (5-15) mmol/L BUN 23 (6-25) mg/dL Creatinine 1.10 (0.51-1.17) mg/dL Est Cr Clr Drug Dosing 63.38 mL/min Estimated GFR (MDRD) > 60 mL/min Glucose 165 H (75 - 99) mg/dL Calcium 9.2 (8.7-10.3) mg/dL Total Bilirubin 0.6 (0.2-1.0) mg/dL AST 19 (15-37) U/L ALT 72 (12-78) U/L Alkaline Phosphatase 94 (46-116) IU/L Troponin I 0.05 (0.00-0.070) ng/mL Total Protein 8.3 H (6.4-8.2) g/dL Albumin 4.16 (3.00-4.80) g/dL Meds: Medications Generic Name Dose Route Start Last Admin Trade Name Freq PRN Reason Stop Dose Admin Sodium Chloride 10 ml 10/12/19 20:28 Saline Flush FLUSH Q8HR PRN keep vein open Discontinued Medications Generic Name Dose Route Start Last Admin Trade Name Scot PRN Reason Stop Dose Admin Albuterol/Ipratropium Confirm 10/12/19 20:26 10/12/19 20:36 Duoneb 3.0-0.5 Mg/3 Ml Administered 10/12/19 20:27 Not Given Dose 3 ml .ROUTE .STK-MED ONE Albuterol/Ipratropium 3 ml 10/12/19 20:28 10/12/19 20:30 Duoneb 3.0-0.5 Mg/3 Ml NEB 10/12/19 20:29 3 ml ONETIME ONE Administration Methylprednisolone Sodium Succinate 125 mg 10/12/19 20:28 10/12/19 21:24 Solu-Medrol IVPUSH 10/12/19 20:29 125 mg ONETIME ONE Administration - Re-Assessments/Exams Free Text/Narrative Re-Assessment/Exam: 10/12/19 22:30 Discussed case with Di Gomez, nurse practitioner at [facility]. In order for patient to be admitted, she required a Covid test. Patient refused Covid test, and requested leaving AGAINST MEDICAL ADVICE. Patient will be discharged and follow-up with PCP tomorrow for home oxygen concerns. Di is aware of the circumstances. Departure - Departure Time of Disposition: 22:34 Disposition: Against Medical Advice 07 Condition: Fair Clinical Impression: COPD exacerbation - Discharge Information Instructions: Chronic Obstructive Pulmonary Disease Exacerbation, [id number] Referrals: Tatiana Farrell MD [Primary Care Provider] - Forms: ED Department Discharge Additional Instructions: Follow-up at [facility] tomorrow Sepsis Event Note (ED) - Focused Exam Vital Signs: Vital Signs Temp Pulse Resp BP Pulse Ox Pulse Ox 10/12/19 22:00 98 18 92 L 10/12/19 21:45 89 16 126/50 L 98 10/12/19 21:20 97.5 F 94 18 122/53 L 99 10/12/19 20:45 102 H 26 H 99 10/12/19 20:30 139 H 28 H 99 10/12/19 20:15 99.6 F 144 H 36 H 157/72 H 98 98 - My Orders Last 24 Hours: My Active Orders 10/12/19 20:28 Chest 2V [CR] Stat Sodium Chloride 0.9% [Saline Flush] 10 ml FLUSH Q8HR PRN Peripheral IV Insertion Adult [OM.PC] Routine 10/12/19 20:29 Oxygen Therapy Adult [Oxygen Therapy] [RC] ASDIRECTED Peripheral IV Care [RC] . DIRECTED RT Aerosol Therapy [RC] ASDIRECTED 10/12/19 22:09 CORONAVIRUS COVID-19 RAPID [MOLEC] Stat LACTIC ACID [CHEM] Stat - Assessment/Plan Last 24 Hours: My Active Orders 10/12/19 20:28 Chest 2V [CR] Stat Sodium Chloride 0.9% [Saline Flush] 10 ml FLUSH Q8HR PRN Peripheral IV Insertion Adult [OM.PC] Routine 10/12/19 20:29 Oxygen Therapy Adult [Oxygen Therapy] [RC] ASDIRECTED Peripheral IV Care [RC] . DIRECTED RT Aerosol Therapy [RC] ASDIRECTED 10/12/19 22:09 CORONAVIRUS COVID-19 RAPID [MOLEC] Stat LACTIC ACID [CHEM] Stat Assessment:: Shortness of breath, leaving AGAINST MEDICAL ADVICE Plan: Follow-up at [facility] tomorrow
[2019-10-12] MEDS: methylPREDNISolone Sodium Succinate 125 MG/2 ML SDV IVPUSH ONE (21:24)
[2019-10-12 22:03] LABS: ANION GAP 14.3 mmol/L (5-15); CHLORIDE,CL 102 mmol/L (98-115); SODIUM,NA 139 mmol/L (136-145)
--- NOTE | 2019-10-13 07:43 | CR ---
[id number] RAD/RAD Chest PA And Lateral EXAM: RAD Chest PA And Lateral CLINICAL DATA: SHORTNESS OF BREATH COMPARISON: CORRELATION IS MADE WITH SEPTEMBER 25, 2019 FINDINGS: The lungs are clear but hyperaerated The cardiomediastinal contour is stable IMPRESSION: AIRWAY DISEASE Apollo Cabello MD 10/13/19 0742 Thank you for allowing us to participate in the care of your patient.
== END 2019-10-12 23:25 | disposition left against medical advice (07) ==
LOC: KA.ED 20:07
DX: J44.1 Chronic obstructive pulmonary disease with (acute) exacerbation (principal); I10 Essential (primary) hypertension; M19.90 Unspecified osteoarthritis, unspecified site; F41.9 Anxiety disorder, unspecified; F32.9 Major depressive disorder, single episode, unspecified; Z79.899 Other long term (current) drug therapy; Z79.82 Long term (current) use of aspirin
CPT/HCPCS: 36415; 71046; 80053; 83605; 84484; 85025; 96374; 99284; 99285-25; J2930; J7620-GY

== ENCOUNTER 2019-10-23 20:52 | Emergency (ER) | payer MEDICARE, MEDICAID ==
[2019-10-23] MEDS ORDERED: Sodium Chloride 0.9% 10 ML Syringe FLUSH PRN (20:55)
[2019-10-23] MEDS ORDERED: methylPREDNISolone Sodium Succinate 125 MG/2 ML SDV IVPUSH ONE (20:56)
[2019-10-23] MEDS ORDERED: Sodium Chloride 0.9% 1,000 ML IV SCH (21:00)
[2019-10-23 21:37] LABS: ANION GAP 16.2 mmol/L (5-15); CHLORIDE,CL 106 mmol/L (98-115); SODIUM,NA 145 mmol/L (136-145)
--- NOTE | 2019-10-23 22:17 | EDM.PDOC ---
ED HPI GENERAL MEDICAL PROBLEM - General Chief Complaint: Respiratory Problem Stated Complaint: difficulty breathing, anxiety Time Seen by Provider: 10/23/19 20:52 Source of Information: Reports: Patient - History of Present Illness Onset: Today Duration: Hour(s): Location: Reports: Head, Chest Quality: Reports: Same as Previous Episode Severity: Moderate Improves with: Reports: Medication Worsens with: Reports: Other Context: Reports: Activity Associated Symptoms: Reports: No Other Symptoms. 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, Other Medication(s) - Related Data Allergies Allergy/AdvReac Type Severity Reaction Status Date / Time No Known Allergies Allergy Verified 10/12/19 22:04 Home Meds: Home Meds Fluticasone/Vilanterol [Breo Ellipta 100-25 MCG Inhalation Kit] 2 puff INH BID 06/03/19 [History] Gabapentin [Neurontin] 600 mg PO BID 06/03/19 [History] Ipratropium [Atrovent HFA] 2 puff INH BID 06/03/19 [History] QUEtiapine Fumarate [Quetiapine Fumarate] 800 mg PO BEDTIME 06/03/19 [History] Albuterol/Ipratropium [DuoNeb 3.0-0.5 MG/3 ML] 3 ml NEB Q4H PRN #30 neb 09/26/19 [Rx] Aspirin 325 mg PO DAILY 09/26/19 [History] busPIRone HCl [Buspirone HCl] 15 mg PO BID #0 09/26/19 [Rx] hydrOXYzine pamoate [Hydroxyzine Pamoate] 50 mg PO BID PRN #30 09/26/19 [Rx] methylPREDNISolone [Medrol Dose Pack] 84 mg PO DAILY #1 dospk 10/08/19 [Rx] busPIRone [Buspar] 15 mg PO BID 5 Days #10 tab 10/23/19 [Rx] hydrOXYzine HCL [Hydroxyzine HCl] 50 mg PO BID PRN 5 Days #10 tablet 10/23/19 [Rx] Past Medical History HEENT History: Reports: Impaired Vision Cardiovascular History: Reports: Hypertension Respiratory History: Reports: COPD, Sleep Apnea Gastrointestinal History: Reports: None Genitourinary History: Reports: None Musculoskeletal History: Reports: Arthritis Neurological History: Reports: None Psychiatric History: Reports: Addiction, Anxiety, Depression, Other (See Below) Other Psychiatric History: benzodiapzepine dependence Endocrine/Metabolic History: Reports: Other (See Below) Other Endocrine/Metabolic History: Prediabetes Hematologic History: Reports: None Immunologic History: Reports: None Oncologic (Cancer) History: Reports: None Dermatologic History: Reports: None - Infectious Disease History Infectious Disease History: Reports: None - Past Surgical History HEENT Surgical History: Reports: None Cardiovascular Surgical History: Reports: None Respiratory Surgical History: Reports: None GI Surgical History: Reports: None Neurological Surgical History: Reports: Other (See Below) Social & Family History - Family History Family Medical History: Noncontributory Cardiac: Reports: CAD, Hypertension - Caffeine Use Caffeine Use: Reports: Soda Other Caffeine Use: drinks soda 1 bottle 3 times a week ED ROS GENERAL - Review of Systems Review Of Systems: Comprehensive ROS is negative, except as noted in HPI. ED EXAM, GENERAL - Physical Exam Exam: See Below Free Text/Narrative:: Alert oriented in no acute distress. Appears somewhat unkempt in his general appearance. No cyanosis nor pallor is noted. There is mild cerumen in the canals nonobstructive with no deficit in his hearing. PERRLA no icterus no injection extraocular motion is intact. Somewhat tacky dry appearing oral membranes with no erythema or lymphadenopathy appreciated. Poor dentition, with no evidence of infection. Neck is soft supple no lymphadenopathy, no tenderness. Thorax is diminished throughout no wheezes no crackles there is no use of accessory muscles. Cardiac mildly tachycardic with no appreciated murmur. Abdomen is rotund bowel sounds present no tenderness. rectal was deferred. There is no edema to the lower extremities moves about with no difficulty. In general discussion during initial assessment he calms down slightly and states his breathing has improved some already. In review of medications it is noted that he does not have 2 of the main components of his anxiety program, buspirone 15 mg showing it was filled 731 but was not delivered today. Also his hydroxyzine 50 mg to be taken 1 twice daily as needed that is not present as well. Course - Vital Signs Last Recorded V/S: Last Vital Signs Temp 36.2 C 10/23/19 21:00 Pulse 127 H 10/23/19 21:00 Resp 24 H 10/23/19 21:00 BP 135/82 10/23/19 21:00 Pulse Ox 98 10/23/19 21:00 - Orders/Labs/Meds Orders: Active Orders 24 hr Category Date Time Status Peripheral IV Care [RC] . DIRECTED Care 10/23/19 20:55 Active Chest 2V [CR] Stat Exams 10/23/19 20:54 Ordered Sodium Chloride 0.9% [Normal Saline] 1,000 ml Med 10/23/19 21:00 Active IV ASDIRECTED Sodium Chloride 0.9% [Saline Flush] Med 10/23/19 20:55 Active 10 ml FLUSH Q8HR PRN Peripheral IV Insertion Adult [OM.PC] Routine Oth 10/23/19 20:55 Ordered Medication Orders Sodium Chloride (Normal Saline) 1,000 mls @ 100 mls/hr IV ASDIRECTED LISA Last Admin: 10/23/19 21:33 Dose: 100 mls/hr Documented by: SURI Sodium Chloride (Saline Flush) 10 ml FLUSH Q8HR PRN PRN Reason: keep vein open Labs: Laboratory Tests 10/23/19 10/23/19 Range/Units 21:09 21:09 WBC 10.08 H (5.00-10.00) 10^3/uL RBC 4.53 (4.50-6.00) 10^6/uL Hgb 12.9 L D (13.0-17.0) g/dL Hct 38.3 L (40.0-52.0) % MCV 84.5 (82.0-92.0) fL MCH 28.5 (27.0-31.0) pg MCHC 33.7 (32.0-36.0) g/dL RDW 15.3 H (11.5-14.5) % Plt Count 213 (150-400) 10^3/uL MPV 9.8 (7.4-10.4) fL Immature Gran % (Auto) 0.6 (0.0-5.0) % Neut % (Auto) 78.4 H (50.0-70.0) % Lymph % (Auto) 14.1 L (20.0-40.0) % [place] % (Auto) 5.9 (2.0-8.0) % Eos % (Auto) 0.8 L (1.0-3.0) % Baso % (Auto) 0.2 (0.0-1.0) % Neut # (Auto) 7.91 H (2.50-7.00) 10^3/uL Lymph # (Auto) 1.42 (1.00-4.00) 10^3/uL [place] # (Auto) 0.59 (0.10-0.80) 10^3/uL Eos # (Auto) 0.08 L (0.10-0.30) 10^3/uL Baso # (Auto) 0.02 (0.00-0.10) 10^3/uL Immature Gran # (Auto) 0.06 (0.00-0.50) 10^3/uL Sodium 145 (136-145) mmol/L Potassium 3.4 (3.3-5.3) mmol/L Chloride 106 (98-115) mmol/L Carbon Dioxide 26.2 (21.0-32.0) mmol/L Anion Gap 16.2 H (5-15) mmol/L BUN 11 (6-25) mg/dL Creatinine 0.71 (0.51-1.17) mg/dL Est Cr Clr Drug Dosing TNP Estimated GFR (MDRD) > 60 mL/min Glucose 156 H (75 - 99) mg/dL Calcium 8.1 L (8.7-10.3) mg/dL Total Bilirubin 0.6 (0.2-1.0) mg/dL AST 27 (15-37) U/L ALT 47 (12-78) U/L Alkaline Phosphatase 84 (46-116) IU/L Total Protein 6.6 (6.4-8.2) g/dL Albumin 2.98 L (3.00-4.80) g/dL Meds: Medications Generic Name Dose Route Start Last Admin Trade Name Freq PRN Reason Stop Dose Admin Sodium Chloride 1,000 mls @ 100 mls/hr 10/23/19 21:00 10/23/19 21:33 Normal Saline IV 100 mls/hr ASDIRECTED LISA Administration Sodium Chloride 10 ml 10/23/19 20:55 Saline Flush FLUSH Q8HR PRN keep vein open Discontinued Medications Generic Name Dose Route Start Last Admin Trade Name Freq PRN Reason Stop Dose Admin Methylprednisolone Sodium Succinate 125 mg 10/23/19 20:56 10/23/19 21:33 Solu-Medrol IVPUSH 10/23/19 20:57 125 mg ONETIME ONE Administration Departure - Departure Time of Disposition: 22:40 Disposition: Home, Self-Care 01 Clinical Impression: Anxiety, Anxiety disorder, COPD (chronic obstructive pulmonary disease), Mild shortness of breath - Discharge Information *PRESCRIPTION DRUG MONITORING PROGRAM REVIEWED*: Not Applicable *COPY OF PRESCRIPTION DRUG MONITORING REPORT IN PATIENT RUPERTO: Not Applicable Prescriptions: busPIRone [Buspar] 15 mg PO BID 5 Days #10 tab hydrOXYzine HCL [Hydroxyzine HCl] 50 mg PO BID PRN 5 Days #10 tablet PRN Reason: Anxiety Forms: ED Department Discharge Additional Instructions: Your chest x-ray as well as lab work looks good You were given some IV fluid and 125 mg Solu-Medrol IV. This steroid will last for the next couple days slowly wearing out of your system. 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 You need to take these medicines to maintain a controlled anxiety component. Contact your pharmacy Saturday morning to make sure you get the remainder of your prescriptions. Contact the [facility] Saturday morning to check on the oxygen delivery evaluation that was started last month and has yet to be delivered. You need to talk to the [facility] discussing the oxygen, as well as medication options for you. With the significant improvement in your breathing upon the arrival here with no additional medication being given, it points towards anxiety being a significant component in this process. Consideration for readjusting medications for better anxiety control could be evaluated. Call or return if situations arise prior to medication discussions and obtaining from your pharmacy on Saturday. Sepsis Event Note (ED) - Evaluation Sepsis Screening Result: No Definite Risk - Focused Exam Vital Signs: Vital Signs Temp Pulse Resp BP Pulse Ox 10/23/19 21:00 36.2 C 127 H 24 H 135/82 98 - Problem List & Annotations (1) Anxiety disorder SNOMED Code(s): 988981136 Code(s): F41.9 - ANXIETY DISORDER, UNSPECIFIED Status: Chronic Priority: High Qualifiers: Anxiety disorder type: generalized anxiety disorder Qualified Code(s): F41.1 - Generalized anxiety disorder (2) COPD (chronic obstructive pulmonary disease) SNOMED Code(s): 46489778 Code(s): J44.9 - CHRONIC OBSTRUCTIVE PULMONARY DISEASE, UNSPECIFIED Status: Chronic Priority: Medium Qualifiers: COPD type: COPD with acute exacerbation Qualified Code(s): J44.1 - Chronic obstructive pulmonary disease with (acute) exacerbation (3) Mild shortness of breath SNOMED Code(s): 391255718 Code(s): R06.02 - SHORTNESS OF BREATH Status: Chronic Priority: High - Problem List Review Problem List Initiated/Reviewed/Updated: Yes - My Orders Last 24 Hours: My Active Orders 10/23/19 20:54 Chest 2V [CR] Stat 10/23/19 20:55 Peripheral IV Care [RC] . DIRECTED Sodium Chloride 0.9% [Saline Flush] 10 ml FLUSH Q8HR PRN Peripheral IV Insertion Adult [OM.PC] Routine 10/23/19 21:00 Sodium Chloride 0.9% [Normal Saline] 1,000 ml IV ASDIRECTED - Assessment/Plan Last 24 Hours: My Active Orders 10/23/19 20:54 Chest 2V [CR] Stat 10/23/19 20:55 Peripheral IV Care [RC] . DIRECTED Sodium Chloride 0.9% [Saline Flush] 10 ml FLUSH Q8HR PRN Peripheral IV Insertion Adult [OM.PC] Routine 10/23/19 21:00 Sodium Chloride 0.9% [Normal Saline] 1,000 ml IV ASDIRECTED Plan: Your chest x-ray as well as lab work looks good You were given some IV fluid and 125 mg Solu-Medrol IV. This steroid will last for the next couple days slowly wearing out of your system. 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 You need to take these medicines to maintain a controlled anxiety component. Contact your pharmacy Saturday to make sure you get the remainder of your prescriptions. Contact the [facility] Saturday morning to check on the oxygen delivery evaluation that was started last month and has yet to be delivered. You need to talk to the [facility] discussing the oxygen, as well as medication options for you. With the significant improvement in your breathing upon the arrival here with no additional medication being given, it points towards anxiety being a significant component in this process. Consideration for readjusting medications for better anxiety control could be evaluated. Call or return if situations arise prior to medication discussions and obtaining from your pharmacy on Saturday.
--- NOTE | 2019-10-24 08:49 | CR ---
[id number] RAD/RAD Chest PA And Lateral EXAM: RAD Chest PA And Lateral INDICATION: SOB COMPARISON: None. DISCUSSION: Cardiomediastinal silhouette is normal in size and contour. No infiltrate, effusion, pneumothorax, or edema. Pulmonary hyperinflation. IMPRESSION: No acute cardiopulmonary abnormality. Guillermo Salcedo DO 10/24/19 0864 Thank you for allowing us to participate in the care of your patient.
== END 2019-10-23 23:15 | disposition home or self-care (01) ==
LOC: KA.ED 20:52
DX: J44.9 Chronic obstructive pulmonary disease, unspecified (principal); F41.9 Anxiety disorder, unspecified; I10 Essential (primary) hypertension; F32.9 Major depressive disorder, single episode, unspecified; M19.90 Unspecified osteoarthritis, unspecified site; H61.23 Impacted cerumen, bilateral; Z79.899 Other long term (current) drug therapy; Z79.82 Long term (current) use of aspirin
CPT/HCPCS: 71046; 80053; 85025; 99285; J2930; J7030; 99284

== ENCOUNTER 2019-11-21 20:44 | Observation (INO) | payer MEDICARE, MEDICAID ==
[2019-11-21] MEDS ORDERED: methylPREDNISolone Sodium Succinate 125 MG/2 ML SDV IVPUSH ONE (20:47)
[2019-11-21] MEDS ORDERED: Sodium Chloride 0.9% 10 ML Syringe FLUSH PRN (20:47)
[2019-11-21] MEDS ORDERED: Albuterol/Ipratropium 3.0-0.5 MG/3 ML Neb Soln NEB ONE (20:47)
--- NOTE | 2019-11-21 20:50 | EDM.PDOC ---
ED HPI GENERAL MEDICAL PROBLEM - General Chief Complaint: Respiratory Problem Stated Complaint: DIFFICULTY BREATHING Time Seen by Provider: 11/21/19 20:45 Source of Information: Reports: Patient History Limitations: Reports: No Limitations - History of Present Illness INITIAL COMMENTS - FREE TEXT/NARRATIVE: 69 YO WM PRESENTS TO ER COMPLAINING OF WORSENING SHORTNESS OF BREATH. PT WITH PMH OF COPD WITH FREQUENT HOSPITALIZATIONS FOR EXACERBATION. PT REPORTS TOBACCO USE. PT STATES TONIGHT HE BEGAN COUGHING AND BECAME SHORT OF BREATH PROMPTING EMS CALL. PT WAS GIVEN DUONEB TREATMENT BY EMS AND STATES HE FEELS BETTER. PT SAO2 AT TIME OF EMS ARRIVAL WAS 94% ON RA. PT STATES HE FEELS BETTER WITH OXYGEN. PT DENIES RECENT ILLNESS- NO RUNNY NOSE OR CONGESTION, NO FEVER/CHILLS. PT REPORTS MILD CHEST TIGHTNESS WHICH WAS RELIEVED AFTER BREATHING TREATMENT. Onset: Unknown/Unsure Duration: Chronic, Recurring Location: Reports: Chest Severity: Moderate Improves with: Reports: Rest Worsens with: Reports: Movement Associated Symptoms: Reports: Cough, Shortness of Breath. Denies: Chest Pain, Diaphoresis, Fever/Chills, Headaches, Nausea/Vomiting - Related Data Allergies Allergy/AdvReac Type Severity Reaction Status Date / Time No Known Allergies Allergy Verified 11/21/19 22:15 Home Meds: Home Meds RX: Fluticasone/Vilanterol [Breo Ellipta 100-25 MCG Inhalation Kit] 2 puff INH BID 06/03/19 [History] RX: Gabapentin [Neurontin] 600 mg PO BID 06/03/19 [History] RX: Ipratropium [Atrovent HFA] 2 puff INH BID 06/03/19 [History] RX: QUEtiapine Fumarate [Quetiapine Fumarate] 800 mg PO BEDTIME 06/03/19 [History] RX: Albuterol/Ipratropium [DuoNeb 3.0-0.5 MG/3 ML] 3 ml NEB Q4H PRN #30 neb 09/26/19 [Rx] RX: Aspirin 325 mg PO DAILY 09/26/19 [History] busPIRone [Buspar] 15 mg PO BID 5 Days #10 tab 10/23/19 [Rx] RX: hydrOXYzine pamoate [Hydroxyzine Pamoate] 50 mg PO PRN 11/21/19 [History] hydrOXYzine HCL [Hydroxyzine HCl] 50 mg PO PRN 11/21/19 [History] Past Medical History HEENT History: Reports: Impaired Vision Cardiovascular History: Reports: Hypertension Respiratory History: Reports: COPD, Sleep Apnea Gastrointestinal History: Reports: None Genitourinary History: Reports: None Musculoskeletal History: Reports: Arthritis Neurological History: Reports: None Psychiatric History: Reports: Addiction, Anxiety, Depression, Other (See Below) Other Psychiatric History: benzodiapzepine dependence Endocrine/Metabolic History: Reports: Other (See Below) Other Endocrine/Metabolic History: Prediabetes Hematologic History: Reports: None Immunologic History: Reports: None Oncologic (Cancer) History: Reports: None Dermatologic History: Reports: None - Infectious Disease History Infectious Disease History: Reports: None - Past Surgical History HEENT Surgical History: Reports: None Cardiovascular Surgical History: Reports: None Respiratory Surgical History: Reports: None GI Surgical History: Reports: None Neurological Surgical History: Reports: Other (See Below) Social & Family History - Family History Family Medical History: Noncontributory Cardiac: Reports: CAD, Hypertension - Caffeine Use Caffeine Use: Reports: Soda Other Caffeine Use: drinks soda 1 bottle 3 times a week ED ROS GENERAL - Review of Systems Review Of Systems: See Below Constitutional: Reports: No Symptoms HEENT: Reports: No Symptoms Respiratory: Reports: Shortness of Breath, Wheezing, Cough Cardiovascular: Reports: Chest Pain, Dyspnea on Exertion Endocrine: Reports: No Symptoms GI/Abdominal: Reports: No Symptoms : Reports: No Symptoms Musculoskeletal: Reports: No Symptoms Skin: Reports: No Symptoms Neurological: Reports: No Symptoms Psychiatric: Reports: No Symptoms Hematologic/Lymphatic: Reports: No Symptoms Immunologic: Reports: No Symptoms ED EXAM, GENERAL - Physical Exam Exam: See Below Exam Limited By: No Limitations General Appearance: Alert, WD/WN, No Apparent Distress Head: Atraumatic, Normocephalic Neck: Normal Inspection, Supple, Non-Tender, Full Range of Motion Respiratory/Chest: No Respiratory Distress, Decreased Breath Sounds, Wheezing Cardiovascular: Normal Peripheral Pulses, Regular Rate, Rhythm, No Edema, No Gallop, No JVD, No Murmur, No Rub GI/Abdominal: Normal Bowel Sounds, Soft, Non-Tender, No Organomegaly, No Distention, No Abnormal Bruit, No Mass Back Exam: Normal Inspection, Full Range of Motion, NT Extremities: Normal Inspection, Normal Range of Motion, Non-Tender, Normal Capillary Refill, No Pedal Edema Neurological: Alert, Oriented, CN II-XII Intact, Normal Cognition, Normal Gait, Normal Reflexes, No Motor/Sensory Deficits Psychiatric: Normal Affect, Normal Mood Skin Exam: Warm, Dry, Intact, Normal Color, No Rash Lymphatic: No Adenopathy EKG INTERPRETATION EKG Date: 11/21/19 Time: 21:11 Rhythm: NSR Rate (Beats/Min): 110 [place]: LAD-Left [place] Deviation P-Wave: Present QRS: Normal ST-T: Normal QT: Normal Course - Vital Signs Last Recorded V/S: Last Vital Signs Temp 36.3 C 11/21/19 20:48 Pulse 115 H 11/21/19 20:48 Resp 22 H 11/21/19 20:48 BP 133/75 11/21/19 20:48 Pulse Ox 92 L 11/21/19 20:48 - Orders/Labs/Meds Orders: Active Orders 24 hr Category Date Time Status EKG Documentation Completion [RC] ASDIRECTED Care 11/21/19 20:48 Active Peripheral IV Care [RC] . DIRECTED Care 11/21/19 20:47 Active RT Aerosol Therapy [RC] ASDIRECTED Care 11/21/19 20:47 Active Chest 2V [CR] Stat Exams 11/21/19 20:47 Taken Sodium Chloride 0.9% [Normal Saline] 1,000 ml Med 11/21/19 21:27 Active IV .BOLUS Sodium Chloride 0.9% [Saline Flush] Med 11/21/19 20:47 Active 10 ml FLUSH Q8HR PRN Peripheral IV Insertion Adult [OM.PC] Routine Oth 11/21/19 20:47 Ordered EKG 12 Lead [EK] Stat Ther 11/21/19 20:47 Ordered Medication Orders Sodium Chloride (Normal Saline) 1,000 mls @ 999 mls/hr IV .BOLUS ONE Stop: 11/21/19 22:27 Last Admin: 11/21/19 22:06 Dose: 999 mls/hr Documented by: CALESIL Sodium Chloride (Saline Flush) 10 ml FLUSH Q8HR PRN PRN Reason: keep vein open Labs: Laboratory Tests 11/21/19 11/21/19 11/21/19 Range/Units 20:47 21:05 21:05 WBC 9.07 (5.00-10.00) 10^3/uL RBC 4.27 L (4.50-6.00) 10^6/uL Hgb 12.0 L (13.0-17.0) g/dL Hct 36.9 L (40.0-52.0) % MCV 86.4 (82.0-92.0) fL MCH 28.1 (27.0-31.0) pg MCHC 32.5 (32.0-36.0) g/dL RDW 16.0 H (11.5-14.5) % Plt Count 308 D (150-400) 10^3/uL MPV 10.0 (7.4-10.4) fL Immature Gran % (Auto) 0.3 (0.0-5.0) % Neut % (Auto) 70.0 (50.0-70.0) % Lymph % (Auto) 18.9 L (20.0-40.0) % [place]ila % (Auto) 9.3 H (2.0-8.0) % Eos % (Auto) 1.1 (1.0-3.0) % Baso % (Auto) 0.4 (0.0-1.0) % Neut # (Auto) 6.35 (2.50-7.00) 10^3/uL Lymph # (Auto) 1.71 (1.00-4.00) 10^3/uL [place] # (Auto) 0.84 H (0.10-0.80) 10^3/uL Eos # (Auto) 0.10 (0.10-0.30) 10^3/uL Baso # (Auto) 0.04 (0.00-0.10) 10^3/uL Immature Gran # (Auto) 0.03 (0.00-0.50) 10^3/uL Sodium 137 (136-145) mmol/L Potassium 3.1 L (3.3-5.3) mmol/L Chloride 101 (98-115) mmol/L Carbon Dioxide 24.0 (21.0-32.0) mmol/L Anion Gap 15.1 H (5-15) mmol/L BUN 12 (6-25) mg/dL Creatinine 0.98 (0.51-1.17) mg/dL Est Cr Clr Drug Dosing 72.30 mL/min Estimated GFR (MDRD) > 60 mL/min Glucose 104 H (75 - 99) mg/dL Calcium 8.7 (8.7-10.3) mg/dL Total Bilirubin 0.5 (0.2-1.0) mg/dL AST 18 (15-37) U/L ALT 36 (12-78) U/L Alkaline Phosphatase 82 (46-116) IU/L Creatine Kinase 36 (26-276) U/L CK-MB (CK-2) 1.20 (0.00-4.30) ng/mL Troponin I 0.07 (0.00-0.070) ng/mL B-Natriuretic Peptide 26 (0-100) pg/mL Total Protein 7.1 (6.4-8.2) g/dL Albumin 2.82 L (3.00-4.80) g/dL COVID-19 (DANA) Negative (NEGATIVE) Meds: Medications Generic Name Dose Route Start Last Admin Trade Name Freq PRN Reason Stop Dose Admin Sodium Chloride 1,000 mls @ 999 mls/hr 11/21/19 21:27 11/21/19 22:06 Normal Saline IV 11/21/19 22:27 999 mls/hr .BOLUS ONE Administration Sodium Chloride 10 ml 11/21/19 20:47 Saline Flush FLUSH Q8HR PRN keep vein open Discontinued Medications Generic Name Dose Route Start Last Admin Trade Name Freq PRN Reason Stop Dose Admin Albuterol/Ipratropium 3 ml 11/21/19 20:47 11/21/19 21:24 Duoneb 3.0-0.5 Mg/3 Ml NEB 11/21/19 20:48 3 ml ONETIME ONE Administration Methylprednisolone Sodium Succinate 125 mg 11/21/19 20:47 11/21/19 21:35 Solu-Medrol IVPUSH 11/21/19 20:48 125 mg ONETIME ONE Administration - Radiology Interpretation Free Text/Narrative:: CXR- NAD Departure - Departure Time of Disposition: 22:25 Disposition: Refer to Observation Condition: Fair Clinical Impression: COPD exacerbation - Discharge Information Referrals: PCP,Unknown [Primary Care Provider] - Forms: ED Department Discharge Sepsis Event Note (ED) - Focused Exam Vital Signs: Vital Signs Temp Pulse Resp BP Pulse Ox 11/21/19 20:48 36.3 C 115 H 22 H 133/75 92 L - My Orders Last 24 Hours: My Active Orders 11/21/19 20:47 Peripheral IV Care [RC] . DIRECTED RT Aerosol Therapy [RC] ASDIRECTED Chest 2V [CR] Stat Sodium Chloride 0.9% [Saline Flush] 10 ml FLUSH Q8HR PRN Peripheral IV Insertion Adult [OM.PC] Routine EKG 12 Lead [EK] Stat 11/21/19 20:48 EKG Documentation Completion [RC] ASDIRECTED 11/21/19 21:27 Sodium Chloride 0.9% [Normal Saline] 1,000 ml IV .BOLUS - Assessment/Plan Last 24 Hours: My Active Orders 11/21/19 20:47 Peripheral IV Care [RC] . DIRECTED RT Aerosol Therapy [RC] ASDIRECTED Chest 2V [CR] Stat Sodium Chloride 0.9% [Saline Flush] 10 ml FLUSH Q8HR PRN Peripheral IV Insertion Adult [OM.PC] Routine EKG 12 Lead [EK] Stat 11/21/19 20:48 EKG Documentation Completion [RC] ASDIRECTED 11/21/19 21:27 Sodium Chloride 0.9% [Normal Saline] 1,000 ml IV .BOLUS Assessment:: 1. COPD EXACERBATION Plan: 1. ADMIT TO MEDICINE- [facility] 2. DUONEB TREATMENTS Q4 AND PRN 3. SOLUMEDROL 80MG Q8 4. SUPPORTIVE CARE- O2 PRN 5. SMOKING CESSATION
[2019-11-21] MEDS ORDERED: Sodium Chloride 0.9% 1,000 ML IV ONE (21:27)
[2019-11-21 21:43] LABS: ANION GAP 15.1 mmol/L (5-15); CHLORIDE,CL 101 mmol/L (98-115); SODIUM,NA 137 mmol/L (136-145)
[2019-11-21] MEDS ORDERED: Sodium Chloride 0.9% 1,000 ML IV SCH (22:30)
[2019-11-21] MEDS ORDERED: Albuterol/Ipratropium 3.0-0.5 MG/3 ML Neb Soln NEB PRN (22:30)
[2019-11-21] MEDS ORDERED: cefTRIAXone 1 GM Vial IVPUSH ONE (22:33)
[2019-11-21] MEDS ORDERED: Non-Formulary Medication 1 Each (Hydroxyzine Pamoate [Hydroxyzine Pamoate] 50 MG) PO PRN (22:53)
[2019-11-21] MEDS: Gabapentin 300 MG Cap PO SCH (23:30)
[2019-11-21] MEDS: Nicotine 14 MG/24 Hr Patch TRDERM SCH (23:30)
[2019-11-21] MEDS: busPIRone 5 MG Tab PO SCH (23:30)
[2019-11-21] MEDS: Potassium Chloride 20 MEQ Tab.ER PO ONE ×2 (23:30→23:39)
[2019-11-22] MEDS ORDERED: methylPREDNISolone Sodium Succinate 125 MG/2 ML SDV IVPUSH ONE (02:00)
[2019-11-22 08:26] LABS: ANION GAP 15.8 mmol/L (5-15); CHLORIDE,CL 103 mmol/L (98-115); SODIUM,NA 140 mmol/L (136-145)
[2019-11-22] MEDS: busPIRone 5 MG Tab PO SCH (08:47)
[2019-11-22] MEDS: Gabapentin 300 MG Cap PO SCH (08:47)
[2019-11-22] MEDS: Nicotine 14 MG/24 Hr Patch TRDERM SCH (08:48)
[2019-11-22] MEDS ORDERED: Aspirin 325 MG Tab.EC PO SCH (09:00)
--- NOTE | 2019-11-22 10:22 | PCM.HP.2 ---
H&P History of Present Illness - General Date of Service: 11/22/19 Admit Problem/Dx: Admission Diagnosis/Problem Admission Diagnosis/Problem COPD, Mild chronic obstructive pulmonary disease Source of Information: Patient, Old Records, Provider, RN History Limitations: Reports: No Limitations - History of Present Illness Initial Comments - Free Text/Narative: HPI Summary: This 69 yo white male presented to the ER via EMS d/t worsening shortness of breath and cough that started in the past couple of days. He was given a DuoNeb treatment by EMS and reported improvement upon arrival to the ER. O2 sat on arrival of EMS was 94% on room air. Denies any URI symptoms. He has been seen frequently in the ER for COPD exacerbations (09/30/19, 10/08/19, 10/12/19, 10/23/19) with his last admission for a COPD exacerbation on 09/25/19. Pertinent ER work-up: WBC 9.1 w/o neutrophilia Hgb 12.0 K 3.1 Creatinine 0.98 Troponin 0.07 BNP 26 COVID negative EKG revealed sinus tachycardia at 110 bpm with LAD and nonspecific ST wave abnormality CXR: no acute cardiopulmonary abnormality; no significant change from prior imaging on 10/23/19. NS 1 L bolus x 1 Solumedrol 125 mg IV x 1 DuoNeb x 1 Hospital Course: 11/22/19: Patient has remained afebrile and hemodynamically stable. He required 1- 2 liters of oxygen overnight for c/o SOB. VS: T 96.7F, HR 87, RR 18, BP 140/75, O2 sat 98% on room air. He was given potassium 40 mEq po on admission to correct the hypokalemia, however nursing reports he wasn't able to swallow this and spit it back out. He was continued on NS at 75 mL/hr overnight, but this will be discontinued today. He was given a nicotine patch even though he reports he quit smoking to myself. He has DuoNebs scheduled q4h PRN, however he has not needed one since being in the ER. These will be changed to a QID schedule and q4h PRN. He was given Rocephin 1 gm IV x 1 on admission, however he doesn't appear to have underlying bacterial etiology so will not continue this at this time. WBC 6.3 with mildly elevated neutrophils of 89%, Hgb 11.6, K 3.8, Creatinine 0.66. He was given solumedrol 80 mg IV x 1 around 0200. Lung bowling are diminished throughout w/o any wheezing. Plan to get patient up to walk today to see what his oxygen need is with exertion. States he did complete the home oxygen ev aluation from the clinic, however I do not have a report showing that this has been completed. Will re-evaluate patient's clinical picture later this afternoon as he may be able to be discharged home at that time with oral prednisone. Hospitalization problems & plan: # COPD exacerbation. # Hypokalemia. - Schedule DuoNebs QID - Continue with DuoNebs q4h prn as well - Holding home inhalers at this time - Up in halls w/wo oxygen to determine O2 sat and O2 need - Dc IVFs - Continue nicotine patch Chronic, stable conditions: # History of HTN. Not currently on any medications for this. # Grade 1 diastolic dysfunction. ECHO (07/2015) EF 70% with hyperdynamic systolic function, mild LVH, mild diastolic dysfunction. # JOSEFINA. # Prediabetes. A1c 5.5 (09/2019). # HLD. LDL 134 (09/2019). On aspirin 325 mg daily. Not on a statin. # Tobacco dependence. # Anxiety. On buspar 15 mg BID, hydroxyzine 50 mg BID prn. # Depression. On seroquel 800 mg at HS. # Insomnia. # Multilevel disc disease of cervical spine. # Chronic pain syndrome. On gabapentin 600 mg BID. Hospitalization details: # FEN. DC IVFs. Electrolytes wnl. Regular diet. # PPX. Lovenox 40 mg SQ daily. # Code Status. Full Code. # Emergency Contact. Daughter, Aimee Blanc. Patient states he has been trying to get ahold of her to let her know where he is. He wishes to continue this himself. # Disposition. Patient has had significant improvement in symptoms. Will re- evaluate his clinical picture later this afternoon with the potential for dis charge back to home. - Related Data Allergies/Adverse Reactions: Allergies Allergy/AdvReac Type Severity Reaction Status Date / Time No Known Allergies Allergy Verified 11/22/19 01:13 Home Medications: Home Meds Fluticasone/Vilanterol [Breo Ellipta 100-25 MCG Inhalation Kit] 2 puff INH DAILY 06/03/19 [History] Gabapentin [Neurontin] 600 mg PO BID 06/03/19 [History] Ipratropium [Atrovent HFA] 2 puff INH BID 06/03/19 [History] QUEtiapine Fumarate [Quetiapine Fumarate] 800 mg PO BEDTIME 06/03/19 [History] Albuterol/Ipratropium [DuoNeb 3.0-0.5 MG/3 ML] 3 ml NEB Q4H PRN #30 neb 09/26/19 [Rx] Aspirin 325 mg PO DAILY 09/26/19 [History] busPIRone [Buspar] 15 mg PO BID 5 Days #10 tab 10/23/19 [Rx] hydrOXYzine pamoate [Hydroxyzine Pamoate] 50 mg PO , PRN 11/21/19 [History] Past Medical History HEENT History: Reports: Impaired Vision, Other (See Below) Other HEENT History: reading glasses Cardiovascular History: Reports: Hypertension Respiratory History: Reports: COPD, Sleep Apnea Gastrointestinal History: Reports: None Genitourinary History: Reports: None Musculoskeletal History: Reports: Arthritis Neurological History: Reports: Migraines Psychiatric History: Reports: Addiction, Anxiety, Depression, Other (See Below) Other Psychiatric History: benzodiapzepine dependence Endocrine/Metabolic History: Reports: Other (See Below) Other Endocrine/Metabolic History: Prediabetes Hematologic History: Reports: None Immunologic History: Reports: None Oncologic (Cancer) History: Reports: None Dermatologic History: Reports: None - Infectious Disease History Infectious Disease History: Reports: Chicken Pox, Influenza, Measles - Past Surgical History HEENT Surgical History: Reports: None Cardiovascular Surgical History: Reports: None Respiratory Surgical History: Reports: None GI Surgical History: Reports: None Musculoskeletal Surgical History: Reports: None Social & Family History - Family History Cardiac: Reports: CAD, Hypertension - Tobacco Use Smoking Status *Q: Current Every Day Smoker Years of Tobacco use: 42 Packs/Tins Daily: 0.5 Used Tobacco, but Quit: No - Caffeine Use Caffeine Use: Reports: Coffee Other Caffeine Use: drinks soda 1 bottle 3 times a week - Recreational Drug Use Recreational Drug Use: No H&P Review of Systems - Review of Systems: Review Of Systems: See Below General: Denies: Fever, Chills HEENT: Denies: Headaches Pulmonary: Reports: Shortness of Breath, Cough. Denies: Wheezing, Pleuritic Chest Pain, Sputum Cardiovascular: Reports: Dyspnea on Exertion. Denies: Chest Pain, Edema, Lightheadedness Gastrointestinal: Denies: Abdominal Pain Genitourinary: Reports: No Symptoms Musculoskeletal: Reports: Leg Pain (bilateral, chronic) Psychiatric: Denies: Anxiety Neurological: Denies: Dizziness, Headache Exam - Exam Exam: See Below - Vital Signs Vital Signs: Last Vital Signs Temp 96.7 F L 11/22/19 07:00 Pulse 87 11/22/19 07:00 Resp 18 11/22/19 07:00 BP 140/75 11/22/19 07:00 Pulse Ox 98 11/22/19 07:00 Weight: 188 lb 6.4 oz - Exam Quality Assessment: DVT Prophylaxis (Lovenox 40 mg SQ daily). No: Supplemental Oxygen (98% on room air) General: Alert, Oriented (x3, had some difficulty remembering the current year but eventually did get it correct), Cooperative, Other (No acute distress) HEENT: Conjunctiva Clear, Hearing Intact Neck: Trachea Midline Lungs: Normal Respiratory Effort, Decreased Breath Sounds (throughout lung bowling). No: Crackles, Rhonchi, Wheezing Cardiovascular: Regular Rhythm, Normal S1, Normal S2, Tachycardia (low 100s) Extremities: No Pedal Edema Skin: Warm, Dry Neurological: Normal Speech Neuro Extensive - Mental Status: Alert, Oriented x3, Normal Mood/Affect Psychiatric: Alert, Normal Affect, Normal Mood. No: Anxious, Agitated - Patient Data Lab Results Last 24 hrs: Laboratory Results - last 24 hr 11/21/19 11/21/19 11/21/19 Range/Units 20:47 21:05 21:05 WBC 9.07 (5.00-10.00) 10^3/uL RBC 4.27 L (4.50-6.00) 10^6/uL Hgb 12.0 L (13.0-17.0) g/dL Hct 36.9 L (40.0-52.0) % MCV 86.4 (82.0-92.0) fL MCH 28.1 (27.0-31.0) pg MCHC 32.5 (32.0-36.0) g/dL RDW 16.0 H (11.5-14.5) % Plt Count 308 D (150-400) 10^3/uL MPV 10.0 (7.4-10.4) fL Immature Gran % (Auto) 0.3 (0.0-5.0) % Neut % (Auto) 70.0 (50.0-70.0) % Lymph % (Auto) 18.9 L (20.0-40.0) % [place] % (Auto) 9.3 H (2.0-8.0) % Eos % (Auto) 1.1 (1.0-3.0) % Baso % (Auto) 0.4 (0.0-1.0) % Neut # (Auto) 6.35 (2.50-7.00) 10^3/uL Lymph # (Auto) 1.71 (1.00-4.00) 10^3/uL [place] # (Auto) 0.84 H (0.10-0.80) 10^3/uL Eos # (Auto) 0.10 (0.10-0.30) 10^3/uL Baso # (Auto) 0.04 (0.00-0.10) 10^3/uL Immature Gran # (Auto) 0.03 (0.00-0.50) 10^3/uL Sodium 137 (136-145) mmol/L Potassium 3.1 L (3.3-5.3) mmol/L Chloride 101 (98-115) mmol/L Carbon Dioxide 24.0 (21.0-32.0) mmol/L Anion Gap 15.1 H (5-15) mmol/L BUN 12 (6-25) mg/dL Creatinine 0.98 (0.51-1.17) mg/dL Est Cr Clr Drug Dosing 72.30 mL/min Estimated GFR (MDRD) > 60 mL/min Glucose 104 H (75 - 99) mg/dL Calcium 8.7 (8.7-10.3) mg/dL Total Bilirubin 0.5 (0.2-1.0) mg/dL AST 18 (15-37) U/L ALT 36 (12-78) U/L Alkaline Phosphatase 82 (46-116) IU/L Creatine Kinase 36 (26-276) U/L CK-MB (CK-2) 1.20 (0.00-4.30) ng/mL Troponin I 0.07 (0.00-0.070) ng/mL B-Natriuretic Peptide 26 (0-100) pg/mL Total Protein 7.1 (6.4-8.2) g/dL Albumin 2.82 L (3.00-4.80) g/dL COVID-19 (DANA) Negative (NEGATIVE) 11/22/19 11/22/19 Range/Units 07:19 07:19 WBC 6.28 (5.00-10.00) 10^3/uL RBC 4.16 L (4.50-6.00) 10^6/uL Hgb 11.6 L (13.0-17.0) g/dL Hct 35.6 L (40.0-52.0) % MCV 85.6 (82.0-92.0) fL MCH 27.9 (27.0-31.0) pg MCHC 32.6 (32.0-36.0) g/dL RDW 15.7 H (11.5-14.5) % Plt Count 324 (150-400) 10^3/uL MPV 10.4 (7.4-10.4) fL Immature Gran % (Auto) 0.3 (0.0-5.0) % Neut % (Auto) 89.8 H (50.0-70.0) % Lymph % (Auto) 8.3 L (20.0-40.0) % [place] % (Auto) 1.1 L (2.0-8.0) % Eos % (Auto) 0.0 L (1.0-3.0) % Baso % (Auto) 0.5 (0.0-1.0) % Neut # (Auto) 5.64 (2.50-7.00) 10^3/uL Lymph # (Auto) 0.52 L (1.00-4.00) 10^3/uL [place] # (Auto) 0.07 L (0.10-0.80) 10^3/uL Eos # (Auto) 0.00 L (0.10-0.30) 10^3/uL Baso # (Auto) 0.03 (0.00-0.10) 10^3/uL Immature Gran # (Auto) 0.02 (0.00-0.50) 10^3/uL Sodium 140 (136-145) mmol/L Potassium 3.8 (3.3-5.3) mmol/L Chloride 103 (98-115) mmol/L Carbon Dioxide 25.0 (21.0-32.0) mmol/L Anion Gap 15.8 H (5-15) mmol/L BUN 10 (6-25) mg/dL Creatinine 0.66 (0.51-1.17) mg/dL Est Cr Clr Drug Dosing 107.35 mL/min Estimated GFR (MDRD) > 60 mL/min Glucose 148 H (75 - 99) mg/dL Calcium 8.3 L (8.7-10.3) mg/dL Total Bilirubin (0.2-1.0) mg/dL AST (15-37) U/L ALT (12-78) U/L Alkaline Phosphatase (46-116) IU/L Creatine Kinase (26-276) U/L CK-MB (CK-2) (0.00-4.30) ng/mL Troponin I (0.00-0.070) ng/mL B-Natriuretic Peptide (0-100) pg/mL Total Protein (6.4-8.2) g/dL Albumin (3.00-4.80) g/dL COVID-19 (DANA) (NEGATIVE) Result Diagrams: 11/22/19 07:19 11/22/19 07:19 EKG INTERPRETATION EKG Date: 11/21/19 Time: 21:11 Rhythm: Other (Sinus Tachycardia) Rate (Beats/Min): 110 [place]: LAD-Left [place] Deviation P-Wave: Present QRS: Normal ST-T: Normal QT: Normal Comparison: Change From Previous EKG (EKG (06/2017) noted ST with PVCs and LAD) Sepsis Event Note - Evaluation Sepsis Screening Result: No Definite Risk - Focused Exam Vital Signs: Vital Signs Temp Pulse Resp BP Pulse Ox 11/22/19 07:00 96.7 F L 87 18 140/75 98 11/22/19 02:38 97.0 F 83 16 143/68 H 96 11/21/19 22:40 96.5 F L 103 H 18 119/71 97 Problem List Initiated/Reviewed/Updated: Yes Orders Last 24hrs: Active Orders 24 hr Category Date Time Status Patient Status [ADT] Routine ADT 11/21/19 22:30 Active Communication Order [RC] 09,21 Care 11/22/19 01:11 Active Incentive Spirometry [RT Incentive Spirometry] [RC] Care 11/22/19 01:06 Active Q2HWA Oxygen Therapy [RC] .PRN Care 11/21/19 22:30 Active Peripheral IV Care [RC] . DIRECTED Care 11/21/19 20:47 Active RT Aerosol Therapy [RC] .PRN Care 11/21/19 20:47 Active RT Aerosol Therapy [RC] ASDIRECTED Care 11/21/19 22:33 Active VTE/DVT Education [RC] PER UNIT ROUTINE Care 11/21/19 22:30 Active Vital Signs [RC] Q4H Care 11/21/19 22:30 Active Regular Diet [DIET] Diet 11/22/19 Breakfast Active Chest 2V [CR] Stat Exams 11/21/19 20:47 Taken Albuterol/Ipratropium [DuoNeb 3.0-0.5 MG/3 ML] Med 11/21/19 22:30 Active 3 ml NEB Q4H PRN Aspirin [Ecotrin] Med 11/22/19 09:00 Active 325 mg PO DAILY Gabapentin [Neurontin] Med 11/21/19 23:00 Active 600 mg PO BID Nicotine [Habitrol] Med 11/21/19 23:15 Active 14 mg TRDERM DAILY QUEtiapine [SEROqueL] Med 11/22/19 21:00 Active 800 mg PO BEDTIME Sodium Chloride 0.9% [Normal Saline] 1,000 ml Med 11/21/19 22:30 Active IV ASDIRECTED Sodium Chloride 0.9% [Saline Flush] Med 11/21/19 20:47 Active 10 ml FLUSH Q8HR PRN busPIRone [Buspar] Med 11/21/19 23:00 Active 15 mg PO BID hydrOXYzine pamoate [Hydroxyzine Pamoate] Med 11/21/19 22:53 Pending 50 mg PO PRN Peripheral IV Insertion Adult [OM.PC] Routine Oth 11/21/19 20:47 Ordered Resuscitation Status Routine Resus Stat 11/21/19 22:30 Ordered EKG 12 Lead [EK] Stat Ther 11/21/19 20:47 Ordered Medication Orders Albuterol/Ipratropium (Duoneb 3.0-0.5 Mg/3 Ml) 3 ml NEB Q4H PRN PRN Reason: Shortness Of Breath/wheezing Aspirin (Ecotrin) 325 mg PO DAILY [facility] Last Admin: 11/22/19 08:47 Dose: 325 mg Documented by: RAMA Buspirone HCl (Buspar) 15 mg PO BID [facility] Last Admin: 11/22/19 08:47 Dose: 15 mg Documented by: Admin: 11/21/19 23:30 Dose: 15 mg Documented by: SUMMER Gabapentin (Neurontin) 600 mg PO BID [facility] Last Admin: 11/22/19 08:47 Dose: 600 mg Documented by: Admin: 11/21/19 23:30 Dose: 600 mg Documented by: SUMMER Sodium Chloride (Normal Saline) 1,000 mls @ 75 mls/hr IV ASDIRECTED [facility] Last Admin: 11/22/19 02:10 Dose: 75 mls/hr Documented by: SUMMER Nicotine (Habitrol) 14 mg TRDERM DAILY [facility] Last Admin: 11/22/19 08:48 Dose: 14 mg Documented by: Admin: 11/21/19 23:30 Dose: 14 mg Documented by: SUMMER Non-Formulary Medication (Hydroxyzine Pamoate [Hydroxyzine Pamoate]) 50 mg PO ,21 PRN PRN Reason: Anxiety Quetiapine Fumarate (Seroquel) 800 mg PO BEDTIME [facility] Sodium Chloride (Saline Flush) 10 ml FLUSH Q8HR PRN PRN Reason: keep vein open Last Admin: 11/22/19 02:33 Dose: 10 ml Documented by: RIC - Mortality Measure Prognosis:: Good
[2019-11-22] MEDS ORDERED: Enoxaparin 40 MG/0.4 ML Syringe SUBCUT SCH (10:30)
--- NOTE | 2019-11-22 10:31 | CR ---
[id number] RAD/RAD Chest PA And Lateral EXAM: RAD Chest PA And Lateral INDICATION: DYSPNEA COMPARISON: October 23, 2019. DISCUSSION: Cardiomediastinal silhouette is unchanged in size and contour compared to the prior examination. No infiltrate, effusion, pneumothorax, or edema. IMPRESSION: No acute findings. Levi Looney MD 11/22/19 1031 Thank you for allowing us to participate in the care of your patient.
[2019-11-22] MEDS ORDERED: hydrOXYzine HCl 25 MG Tab PO PRN (10:47)
[2019-11-22] MEDS ORDERED: Albuterol/Ipratropium 3.0-0.5 MG/3 ML Neb Soln NEB SCH (11:00)
[2019-11-22] MEDS ORDERED: predniSONE 20 MG Tab PO ONE (16:02)
--- NOTE | 2019-11-22 16:07 | PCM.DCSUM1 ---
Discharge Summary - Discharge Data Discharge Date: 11/22/19 Discharge Disposition: Home, Self-Care 01 Condition: Good - Patient Summary/Data Complications: None Consults: Consultations 11/22/19 15:50 Consult to Case Management/[employer]er [CONS] Routine Labs Pending at D/C: None Hospital Course: This is a same day admission/discharge. See previous admit H&P for full details. Date of admission: 11/21/19 Date of discharge: 11/22/19 Admission diagnoses: # COPD exacerbation. # Hyperkalemia. Discharge diagnoses: # COPD exacerbation, improving/resolving. # Hyperkalemia, resolved. Consultations: # [employer] Procedures: None Hospital Course: HPI Summary: This 69 yo white male presented to the ER via EMS d/t worsening shortness of breath and cough that started in the past couple of days. He was given a DuoNeb treatment by EMS and reported improvement upon arrival to the ER. O2 sat on arrival of EMS was 94% on room air. Denies any URI symptoms. He has been seen frequently in the ER for COPD exacerbations (09/30/19, 10/08/19, 10/12/19, 10/23/19) with his last admission for a COPD exacerbation on 09/25/19. Pertinent ER work-up: WBC 9.1 w/o neutrophilia Hgb 12.0 K 3.1 Creatinine 0.98 Troponin 0.07 BNP 26 COVID negative EKG revealed sinus tachycardia at 110 bpm with LAD and nonspecific ST wave abnormality CXR: no acute cardiopulmonary abnormality; no significant change from prior imaging on 10/23/19. NS 1 L bolus x 1 Solumedrol 125 mg IV x 1 DuoNeb x 1 Hospital Course: 11/22/19: Patient has remained afebrile and hemodynamically stable. He required 1- 2 liters of oxygen overnight for c/o SOB. VS: T 96.7F, HR 87, RR 18, BP 140/75, O2 sat 98% on room air. He was given potassium 40 mEq po on admission to correct the hypokalemia, however nursing reports he wasn't able to swallow this and sp it it back out. He was continued on NS at 75 mL/hr overnight, but this will be discontinued today. He was given a nicotine patch even though he reports he quit smoking to myself. He has DuoNebs scheduled q4h PRN, however he has not needed one since being in the ER. These will be changed to a QID schedule and q4h PRN. He was given Rocephin 1 gm IV x 1 on admission, however he doesn't appear to have underlying bacterial etiology so will not continue this at this time. WBC 6.3 with mildly elevated neutrophils of 89%, Hgb 11.6, K 3.8, Creatinine 0.66. He was given solumedrol 80 mg IV x 1 around 0200. Lung bowling are diminished throughout w/o any wheezing. Plan to get patient up to walk today to see what his oxygen need is with exertion. States he did complete the home oxygen evaluation from the clinic, however I do not have a report showing that this has been completed. Will re-evaluate patient's clinical picture later this afternoon as he may be able to be discharged home at that time with oral prednisone. 11/22/19 PM update: Patient ambulated in the lainez with nurse for 75 ft with oxygen saturation remaining at 92% on room air & no c/o of SOB. He would not walk any further d/t his legs hurting (this is chronic per patient). He has remained off oxygen since early this morning. He is wishing to go home. Nursing spent a great deal of time trying to find him a ride home. His daughter's phone number is restricted. He has a sister, Sharon, who was contacted by nursing however she is in [place] on vacation so can not help him. [facility] was called and is going to pick the patient up and bring him home. Social service consult was placed d/t above social issues and wellbeing of the patient. Discharge & Follow-up Recommendations: The patient is in stable condition at the time of discharge. He will be discharged home with the [facility] as he had no one else to pick him up. He will follow-up at the [facility] on 11/25/19 with Lakshmi Piper APRN CNP. He is to schedule this appointment when the clinic is open on Saturday. The importance of regular follow-up was emphasized on discharge. #New medications on discharge: -Prednisone 40 mg po daily x 5 days -Nicotine 14 mg transdermal patch daily #Changes to home medications on discharge: -Schedule DuoNebs QID & may continue them q4h prn as well. - Patient Instructions Diet: Regular Diet as Tolerated Activity: As Tolerated, No Strenuous Activities, Rest and Relax Today Driving: Do Not Drive Notify Provider of: Fever (increased shortness of breath not relieved by a DuoNeb or hydroxyzine, chest pain or tightness, productive cough) - Discharge Plan *PRESCRIPTION DRUG MONITORING PROGRAM REVIEWED*: Not Applicable *COPY OF PRESCRIPTION DRUG MONITORING REPORT IN PATIENT RUPERTO: Not Applicable Prescriptions/Med Rec: Albuterol/Ipratropium [DuoNeb 3.0-0.5 MG/3 ML] 3 ml NEB Q6HRRT #1 box Nicotine [Habitrol] 14 mg TRDERM DAILY #30 patch predniSONE [Prednisone] 40 mg PO DAILY 5 Days #10 tablet Home Medications: Home Meds Fluticasone/Vilanterol [Breo Ellipta 100-25 MCG Inhalation Kit] 2 puff INH DAILY 06/03/19 [History] Gabapentin [Neurontin] 600 mg PO BID 06/03/19 [History] Ipratropium [Atrovent HFA] 2 puff INH BID 06/03/19 [History] QUEtiapine Fumarate [Quetiapine Fumarate] 800 mg PO BEDTIME 06/03/19 [History] Albuterol/Ipratropium [DuoNeb 3.0-0.5 MG/3 ML] 3 ml NEB Q4H PRN #30 neb 09/26/19 [Rx] Aspirin 325 mg PO DAILY 09/26/19 [History] busPIRone [Buspar] 15 mg PO BID 5 Days #10 tab 10/23/19 [Rx] hydrOXYzine pamoate [Hydroxyzine Pamoate] 50 mg PO PRN 11/21/19 [History] Albuterol/Ipratropium [DuoNeb 3.0-0.5 MG/3 ML] 3 ml NEB Q6HRRT #1 box 11/22/19 [Rx] Nicotine [Habitrol] 14 mg TRDERM DAILY #30 patch 11/22/19 [Rx] predniSONE [Prednisone] 40 mg PO DAILY 5 Days #10 tablet 11/22/19 [Rx] Oxygen Therapy Mode: Room Air Referrals: Lakshmi Piper NP [Ordering Only Provider] - 11/25/19 (Call the [facility] on Saturday to schedule your hospital follow-up appointment. This is very important that you follow through with this. ) - Discharge Summary/Plan Comment DC Time >30 min.: Yes - Patient Data Vitals - Most Recent: Last Vital Signs Temp 96.1 F L 11/22/19 11:00 Pulse 85 11/22/19 11:43 Resp 20 11/22/19 11:00 BP 150/83 H 11/22/19 11:00 Pulse Ox 92 L 11/22/19 11:43 Weight - Most Recent: 188 lb 6.4 oz I&O - Last 24 hours: Intake & Output 11/22/19 11/22/19 11/22/19 06:59 14:59 22:59 Intake Total 1400 1425 Output Total 0 Balance 1400 1425 Lab Results - Last 24 hrs: Laboratory Results - last 24 hr 11/21/19 11/21/19 11/21/19 Range/Units 20:47 21:05 21:05 WBC 9.07 (5.00-10.00) 10^3/uL RBC 4.27 L (4.50-6.00) 10^6/uL Hgb 12.0 L (13.0-17.0) g/dL Hct 36.9 L (40.0-52.0) % MCV 86.4 (82.0-92.0) fL MCH 28.1 (27.0-31.0) pg MCHC 32.5 (32.0-36.0) g/dL RDW 16.0 H (11.5-14.5) % Plt Count 308 D (150-400) 10^3/uL MPV 10.0 (7.4-10.4) fL Immature Gran % (Auto) 0.3 (0.0-5.0) % Neut % (Auto) 70.0 (50.0-70.0) % Lymph % (Auto) 18.9 L (20.0-40.0) % Morrill % (Auto) 9.3 H (2.0-8.0) % Eos % (Auto) 1.1 (1.0-3.0) % Baso % (Auto) 0.4 (0.0-1.0) % Neut # (Auto) 6.35 (2.50-7.00) 10^3/uL Lymph # (Auto) 1.71 (1.00-4.00) 10^3/uL Morrill # (Auto) 0.84 H (0.10-0.80) 10^3/uL Eos # (Auto) 0.10 (0.10-0.30) 10^3/uL Baso # (Auto) 0.04 (0.00-0.10) 10^3/uL Immature Gran # (Auto) 0.03 (0.00-0.50) 10^3/uL Sodium 137 (136-145) mmol/L Potassium 3.1 L (3.3-5.3) mmol/L Chloride 101 (98-115) mmol/L Carbon Dioxide 24.0 (21.0-32.0) mmol/L Anion Gap 15.1 H (5-15) mmol/L BUN 12 (6-25) mg/dL Creatinine 0.98 (0.51-1.17) mg/dL Est Cr Clr Drug Dosing 72.30 mL/min Estimated GFR (MDRD) > 60 mL/min Glucose 104 H (75 - 99) mg/dL Calcium 8.7 (8.7-10.3) mg/dL Total Bilirubin 0.5 (0.2-1.0) mg/dL AST 18 (15-37) U/L ALT 36 (12-78) U/L Alkaline Phosphatase 82 (46-116) IU/L Creatine Kinase 36 (26-276) U/L CK-MB (CK-2) 1.20 (0.00-4.30) ng/mL Troponin I 0.07 (0.00-0.070) ng/mL B-Natriuretic Peptide 26 (0-100) pg/mL Total Protein 7.1 (6.4-8.2) g/dL Albumin 2.82 L (3.00-4.80) g/dL COVID-19 (DANA) Negative (NEGATIVE) 11/22/19 11/22/19 Range/Units 07:19 07:19 WBC 6.28 (5.00-10.00) 10^3/uL RBC 4.16 L (4.50-6.00) 10^6/uL Hgb 11.6 L (13.0-17.0) g/dL Hct 35.6 L (40.0-52.0) % MCV 85.6 (82.0-92.0) fL MCH 27.9 (27.0-31.0) pg MCHC 32.6 (32.0-36.0) g/dL RDW 15.7 H (11.5-14.5) % Plt Count 324 (150-400) 10^3/uL MPV 10.4 (7.4-10.4) fL Immature Gran % (Auto) 0.3 (0.0-5.0) % Neut % (Auto) 89.8 H (50.0-70.0) % Lymph % (Auto) 8.3 L (20.0-40.0) % Morrill % (Auto) 1.1 L (2.0-8.0) % Eos % (Auto) 0.0 L (1.0-3.0) % Baso % (Auto) 0.5 (0.0-1.0) % Neut # (Auto) 5.64 (2.50-7.00) 10^3/uL Lymph # (Auto) 0.52 L (1.00-4.00) 10^3/uL Morrill # (Auto) 0.07 L (0.10-0.80) 10^3/uL Eos # (Auto) 0.00 L (0.10-0.30) 10^3/uL Baso # (Auto) 0.03 (0.00-0.10) 10^3/uL Immature Gran # (Auto) 0.02 (0.00-0.50) 10^3/uL Sodium 140 (136-145) mmol/L Potassium 3.8 (3.3-5.3) mmol/L Chloride 103 (98-115) mmol/L Carbon Dioxide 25.0 (21.0-32.0) mmol/L Anion Gap 15.8 H (5-15) mmol/L BUN 10 (6-25) mg/dL Creatinine 0.66 (0.51-1.17) mg/dL Est Cr Clr Drug Dosing 107.35 mL/min Estimated GFR (MDRD) > 60 mL/min Glucose 148 H (75 - 99) mg/dL Calcium 8.3 L (8.7-10.3) mg/dL Total Bilirubin (0.2-1.0) mg/dL AST (15-37) U/L ALT (12-78) U/L Alkaline Phosphatase (46-116) IU/L Creatine Kinase (26-276) U/L CK-MB (CK-2) (0.00-4.30) ng/mL Troponin I (0.00-0.070) ng/mL B-Natriuretic Peptide (0-100) pg/mL Total Protein (6.4-8.2) g/dL Albumin (3.00-4.80) g/dL COVID-19 (DANA) (NEGATIVE) Med Orders - Current: Current Medications Albuterol/Ipratropium (Duoneb 3.0-0.5 Mg/3 Ml) 3 ml NEB Q4H PRN PRN Reason: Shortness Of Breath/wheezing Albuterol/Ipratropium (Duoneb 3.0-0.5 Mg/3 Ml) 3 ml NEB Q6HRRT [facility] Last Admin: 11/22/19 11:41 Dose: 3 ml Documented by: Aspirin (Ecotrin) 325 mg PO DAILY [facility] Last Admin: 11/22/19 08:47 Dose: 325 mg Documented by: Buspirone HCl (Buspar) 15 mg PO BID [facility] Last Admin: 11/22/19 08:47 Dose: 15 mg Documented by: Enoxaparin Sodium (Lovenox) 40 mg SUBCUT Q24H [facility] Last Admin: 11/22/19 11:41 Dose: 40 mg Documented by: Gabapentin (Neurontin) 600 mg PO BID [facility] Last Admin: 11/22/19 08:47 Dose: 600 mg Documented by: Hydroxyzine HCl (Atarax) 50 mg PO BID PRN PRN Reason: anxiety/panic attacks Nicotine (Habitrol) 14 mg TRDERM DAILY [facility] Last Admin: 11/22/19 08:48 Dose: 14 mg Documented by: Prednisone (Prednisone) 40 mg PO ONETIME ONE Stop: 11/22/19 16:03 Quetiapine Fumarate (Seroquel) 800 mg PO BEDTIME [facility] Sodium Chloride (Saline Flush) 10 ml FLUSH Q8HR PRN PRN Reason: keep vein open Last Admin: 11/22/19 02:33 Dose: 10 ml Documented by: Discontinued Medications Albuterol/Ipratropium (Duoneb 3.0-0.5 Mg/3 Ml) 3 ml NEB ONETIME ONE Stop: 11/21/19 20:48 Last Admin: 11/21/19 21:24 Dose: 3 ml Documented by: Ceftriaxone Sodium (Rocephin) 1 gm IVPUSH ONETIME ONE Stop: 11/21/19 22:34 Last Admin: 11/21/19 23:29 Dose: 1 gm Documented by: Sodium Chloride (Normal Saline) 1,000 mls @ 999 mls/hr IV .BOLUS ONE Stop: 11/21/19 22:27 Last Admin: 11/21/19 22:06 Dose: 999 mls/hr Documented by: Sodium Chloride (Normal Saline) 1,000 mls @ 75 mls/hr IV ASDIRECTED [facility] Last Admin: 11/22/19 02:10 Dose: 75 mls/hr Documented by: Methylprednisolone Sodium Succinate (Solu-Medrol) 125 mg IVPUSH ONETIME ONE Stop: 11/21/19 20:48 Last Admin: 11/21/19 21:35 Dose: 125 mg Documented by: Methylprednisolone Sodium Succinate (Solu-Medrol) 80 mg IVPUSH ONETIME ONE Stop: 11/22/19 02:01 Last Admin: 11/22/19 02:31 Dose: 80 mg Documented by: Non-Formulary Medication (Hydroxyzine Pamoate [Hydroxyzine Pamoate]) 50 mg PO PRN PRN Reason: Anxiety Potassium Chloride (Klor-Con M20) 40 meq PO ONETIME ONE Stop: 11/21/19 22:50 Last Admin: 11/21/19 23:39 Dose: Not Given Documented by:
[2019-11-22] MEDS ORDERED: QUEtiapine 100 MG Tab PO SCH (21:00)
== END 2019-11-22 16:15 | disposition home or self-care (01) ==
LOC: KA.ED 20:44 → KA.MS 22:26 → UNDOADMOB 22:30 → UNDODISOB 11-22 16:15
PROVIDERS: ADMIT Physician Assistant Medical; ATTEND Nurse Practitioner Family
DX: J44.1 Chronic obstructive pulmonary disease with (acute) exacerbation (principal); E87.6 Hypokalemia; F41.9 Anxiety disorder, unspecified; F32.9 Major depressive disorder, single episode, unspecified; G89.4 Chronic pain syndrome; M50.90 Cervical disc disorder, unspecified, unspecified cervical region; G47.00 Insomnia, unspecified; R73.03 Prediabetes; I11.9 Hypertensive heart disease without heart failure; F17.210 Nicotine dependence, cigarettes, uncomplicated; G47.33 Obstructive sleep apnea (adult) (pediatric); Z79.899 Other long term (current) drug therapy; Z20.828 Contact with and (suspected) exposure to other viral communicable diseases; Z79.82 Long term (current) use of aspirin; Z79.51 Long term (current) use of inhaled steroids
CPT/HCPCS: 36415; 71046; 80048; 80053; 82550; 82553; 83880; 84484; 85025; 93005; 94640; 96361; 96372; 96374; 96375; 96376; 99285-25; A9270-GY; G0378; J0696; J1650; J2930; J7030; J7620-GY; U0002